=== PATIENT | male | born 1955 ===

== ENCOUNTER 2016-09-18 09:51 | Emergency (ER) | payer OTHER ==
[2016-09-18 09:52] VITALS: BMI 28.6
[2016-09-18] MEDS ORDERED: Sodium Chloride 0.9% 1,000 ML IV STA (10:07)
--- NOTE | 2016-09-18 10:24 | ED PDOC ---
Arrival/HPI - General Chief Complaint: Abdominal Pain Time Seen by Provider: 09/18/16 10:02 Historian: Patient - History of Present Illness Narrative History of Present Illness (Text): 09/18/16 10:22 61yo male with no PMH present with complaint of RLQ abdominal pain x 3days. States he was seen at [facility] this morning and was referred to ED. He denies nausea, vomiting, diarrhea, constipation, hematmesis, melena, any other complaint. Past Medical History - Provider Review Nursing Documentation Reviewed: Yes - Past History Past History: No Previous - Infectious Disease Hx of Infectious Diseases: None - Tetanus Immunization Tetanus Immunization: Unknown - Past Medical History Past Medical History: No Previous - Cardiac Hx Cardiac Disorders: No - Pulmonary Hx Respiratory Disorders: No - Neurological Hx Neurological Disorder: No - HEENT Hx HEENT Disorder: No - Renal Hx Renal Disorder: No - Endocrine/Metabolic Hx Endocrine Disorders: No - Hematological/Oncological Hx Blood Disorders: No - Integumentary Hx Dermatological Disorder: No - Musculoskeletal/Rheumatological Hx Musculoskeletal Disorders: Yes Hx Arthritis: Yes - Gastrointestinal Hx Gastrointestinal Disorders: No - Genitourinary/Gynecological Hx Genitourinary Disorders: No - Psychiatric Hx Psychophysiologic Disorder: No Hx Substance Use: No - Past Surgical History Past Surgical History: No Previous - Surgical History Hx Orthopedic Surgery: Yes (right shoulder) - Anesthesia Hx Anesthesia: Yes Hx Anesthesia Reactions: No Hx Malignant Hyperthermia: No - Suicidal Assessment Feels Threatened In Home Enviroment: No Family/Social History - Physician Review Nursing Documentation Reviewed: Yes Family/Social History: Unknown Family HX Smoking Status: Former Smoker Hx Alcohol Use: No Hx Substance Use: No Hx Substance Use Treatment: No Allergies/Home Meds Allergies/Adverse Reactions: Allergies No Known Allergies Allergy (Verified 09/18/16 09:52) Review of Systems - Physician Review All systems were reviewed & negative as marked: Yes - Review of Systems Constitutional: Normal Eyes: Normal ENT: Normal Respiratory: Normal Cardiovascular: Normal Gastrointestinal: Abdominal Pain. absent: Constipation, Diarrhea, Nausea, Vomiting, Hematochezia, Hematemesis Genitourinary Male: Normal Musculoskeletal: Normal Skin: Normal Neurological: Normal Endocrine: Normal Hemo/Lymphatic: Normal Psychiatric: Normal Physical Exam Vital Signs Reviewed: Yes Vital Signs Temp Pulse Resp BP Pulse Ox 09/18/16 14:00 98.2 F 78 20 118/71 99 09/18/16 12:01 121/71 97 09/18/16 11:21 98.6 F 85 20 126/77 96 09/18/16 09:55 97.6 F 78 18 117/73 99 Temperature: Afebrile Blood Pressure: Normal Pulse: Regular Respiratory Rate: Normal Appearance: Positive for: Well-Appearing, Non-Toxic, Comfortable Pain Distress: None Mental Status: Positive for: Alert and Oriented X 3 - Systems Exam Head: Present: Atraumatic, Normocephalic Pupils: Present: PERRL Extroacular Muscles: Present: EOMI Conjunctiva: Present: Normal Mouth: Present: Moist Mucous Membranes Neck: Present: Normal Range of Motion Respiratory/Chest: Present: Clear to Auscultation, Good Air Exchange. No: Respiratory Distress, Accessory Muscle Use Cardiovascular: Present: Regular Rate and Rhythm, Normal S1, S2. No: Murmurs Abdomen: Present: Tenderness (RLQ ), Normal Bowel Sounds, Other (Soft). No: Distention, Peritoneal Signs, Rebound, Guarding, McBurney's Point Tender, Rovsing's Sign Present Back: Present: Normal Inspection Upper Extremity: Present: Normal Inspection. No: Cyanosis, Edema Lower Extremity: Present: Normal Inspection. No: Edema Neurological: Present: GCS=15, CN II-XII Intact, Speech Normal Skin: Present: Warm, Dry, Normal Color. No: Rashes Psychiatric: Present: Alert, Oriented x 3, Normal Insight, Normal Concentration Medical Decision Making ED Course and Treatment: 09/18/16 18:39 PT presented for stated history. He was hemodynamically stable in ED. He denied flank pain, hematuria. Lab was unremarkable. Abdominal /Pelvis CT- Possible right renal mass. Renal US - No renal pass. Negative study. Result was DW the pt. He was referred to a GI for further outpt evaluation. Advised to return to ED at any time for worsening or new symptoms. - Lab Interpretations Lab Results: 09/18/16 10:39 09/18/16 10:39 Lab Results 09/18/16 11:06: Urine Color Yellow, Urine Appearance Clear, Urine pH 7.5, Ur Specific [place] 1.020, Urine Protein Negative, Urine Glucose (UA) Negative, Urine Ketones Negative, Urine Blood Negative, Urine Nitrate Negative, Urine Bilirubin Negative, Urine Urobilinogen 0.2, Ur Leukocyte Esterase Negative 09/18/16 10:39: Sodium 137, Potassium 4.2, Chloride 105, Carbon Dioxide 27, Anion Gap 9 L, BUN 16, Creatinine 0.8, Est GFR ( Amer) > 60, Est GFR (Non -Af Amer) > 60, Random Glucose 108, Calcium 8.8, Total Bilirubin 0.5, AST 26, ALT 38, Alkaline Phosphatase 71, Total Protein 6.5, Albumin 3.7, Globulin 2.8, Albumin/Globulin Ratio 1.3, Lipase 152 09/18/16 10:39: PT 10.7, INR 0.99, APTT 26.0 09/18/16 10:39: WBC 3.5 L, RBC 4.65, Hgb 13.7 L, Hct 40.0 L, MCV 86.0, MCH 29.5 , MCHC 34.3, RDW 12.5, Plt Count 220, MPV 9.0, Gran % 39.2 L, Lymph % (Auto) 40.9 H, [place] % (Auto) 8.6 H, Eos % (Auto) 10.7 H, Baso % (Auto) 0.6, Gran # 1.36 L, Lymph # 1.4, [place] # 0.3, Eos # 0.4, Baso # 0.02 - RAD Interpretation Radiology Orders: 09/18/16 10:08 ABD & PELVIS IV CONTRAST ONLY [CT] Stat 09/18/16 12:09 RENAL [US] Stat - Medication Orders Current Medication Orders: Discontinued Medications Famotidine (Pepcid) 20 mg IVP STAT STA Stop: 09/18/16 10:08 Last Admin: 09/18/16 10:37 Dose: 20 mg Sodium Chloride (Sodium Chloride 0.9%) 1,000 mls @ 1,000 mls/hr IV .Q1H STA Stop: 09/18/16 11:06 Last Admin: 09/18/16 10:37 Dose: 1,000 mls/hr Iohexol (Omnipaque 350 100 Ml) Confirm Administered Dose 350 mg .ROUTE .STK-MED ONE Stop: 09/18/16 11:13 Ketorolac Tromethamine (Toradol) 30 mg IVP STAT STA Stop: 09/18/16 12:51 Last Admin: 09/18/16 13:33 Dose: 30 mg Disposition/Present on Arrival - Present on Arrival Any Indicators Present on Arrival: No History of DVT/PE: No History of Uncontrolled Diabetes: No Urinary Catheter: No History of Decub. Ulcer: No History Surgical Site Infection Following: None - Disposition Have Diagnosis and Disposition been Completed?: Yes Diagnosis: Abdominal pain Disposition: HOME/ ROUTINE Disposition Time: 13:10 Patient Plan: Discharge Condition: STABLE Discharge Instructions (ExitCare): Abdominal Pain (ED) Additional Instructions: Follow up with your Doctor/Trust Clerk Return to ED for any new or worsening symptoms Prescriptions: Famotidine [Pepcid] 40 mg PO DAILY #15 tab traMADol [Ultram] 50 mg PO TID #9 tab Referrals: Eileen Collins MD [Primary Care Provider] - Follow up with primary Danish Gleason DO [Staff Provider] - Follow up with primary
[2016-09-18 10:39] LABS: ADD MANUAL DIFF? NO
[2016-09-18 10:49] LABS: BASO # 0.02 K/mm3 (0.0-2.0); BASO % 0.6 % (0.0-3.0); EOS # 0.4 (0.0-0.7); EOS % 10.7 % (1.5-5.0); GRAN # 1.36 (1.4-6.5); GRAN % 39.2 % (50.0-68.0); LYMPH # 1.4 (1.2-3.4); LYMPH % 40.9 % (22.0-35.0); MEAN CORPUSCULAR HEMOGLOBIN 29.5 pg (25.0-35.0); MEAN CORPUSCULAR HGB CONC 34.3 g/dl (31.0-37.0); MONO # 0.3 (0.1-0.6); MONO % 8.6 % (1.0-6.0); PLATELET COUNT 220 10^3/uL (120.0-450.0); RED CELL DISTRIBUTION WIDTH 12.5 % (11.5-14.5); WHITE BLOOD COUNT 3.5 10^3/ul (4.5-11.0)
[2016-09-18 10:52] LABS: ALB/GLOB RATIO 1.3 (1.1-1.8); ALKALINE PHOSPHATASE 71 U/L (38-133); ALT/SGPT 38 U/L (7-56); AST/SGOT 26 U/L (15-59); BILIRUBIN,TOTAL 0.5 mg/dL (0.2-1.3); BLOOD UREA NITROGEN 16 mg/dL (7-21); CALCIUM 8.8 mg/dL (8.4-10.5); CARBON DIOXIDE 27 mmol/L (21-33); CHLORIDE 105 mmol/L (98-107); GFR AFRICAN-AMERICAN > 60; GLUCOSE,RANDOM 108 mg/dL (70-110); LIPASE 152 U/L (23-300); POTASSIUM 4.2 mmol/L (3.6-5.0); SODIUM 137 mmol/L (132-148); TOTAL PROTEIN 6.5 g/dL (5.8-8.3)
[2016-09-18 10:53] LABS: INR 0.99 (0.93-1.08)
[2016-09-18] MEDS ORDERED: Iohexol 350 MG/100 ML VIAL ONE (11:12)
[2016-09-18 11:21] VITALS: RESP 20
[2016-09-18 11:26] LABS: PH,URINE 7.5 (4.7-8.0); URINE BILIRUBIN NEGATIVE (NEGATIVE); URINE BLOOD NEGATIVE (NEGATIVE); URINE GLUCOSE (UA) NEGATIVE (NEGATIVE); URINE KETONE NEGATIVE (NEGATIVE); URINE LEUKOCYTE ESTERASE NEGATIVE Leu/uL (NEGATIVE); URINE PROTEIN NEGATIVE mg/dL (<30 mg/dL); URINE UROBILINOGEN 0.2 E.U./dL (<1 E.U./dL)
[2016-09-18 11:28] LABS: URINE APPEARANCE CLEAR (CLEAR); URINE COLOR YELLOW (YELLOW)
--- NOTE | 2016-09-18 12:00 | CT ---
PROCEDURE: CT Abdomen and Pelvis with contrast HISTORY: RLQ abdominal pain COMPARISON: None. TECHNIQUE: Contrast dose: 150 mL Omnipaque 350 Radiation dose: Total exam DLP = 650.81 mGy-cm. This CT exam was performed using one or more of the following dose reduction techniques: Automated exposure control, adjustment of the mA and/or kV according to patient size, and/or use of iterative reconstruction technique. FINDINGS: LOWER THORAX: Unremarkable. LIVER: Diffusely diminished attenuation consistent with fatty infiltration. Normal size and contour. No mass or biliary dilatation. GALLBLADDER AND BILE DUCTS: Unremarkable. PANCREAS: Unremarkable. No gross lesion or ductal dilatation. SPLEEN: Unremarkable. ADRENALS: Unremarkable. No mass. KIDNEYS AND URETERS: 1.6 cm right lower pole renal cortical cyst. 2.4 cm left upper pole renal mass. This measures 84 Hounsfield units in attenuation. Suspicious for renal cell neoplasm. Evaluation with ultrasound is advised. No renal calculus or hydronephrosis. VASCULATURE: Unremarkable. No aortic aneurysm. BOWEL: Unremarkable. No obstruction. No gross mural thickening. APPENDIX: Normal appendix. PERITONEUM: Unremarkable. No free fluid. No free air. LYMPH NODES: Unremarkable. No enlarged lymph nodes. BLADDER: Unremarkable. REPRODUCTIVE: Normal prostate BONES: No acute fracture. OTHER FINDINGS: None. IMPRESSION: No evidence of acute appendicitis. 2.4 cm left upper pole renal mass suspicious for solid neoplasm. Recommend evaluation with renal ultrasound. 1.6 cm right lower pole renal cortical cyst. Otherwise unremarkable examination. .
--- NOTE | 2016-09-18 12:46 | US ---
PROCEDURE: Ultrasound of the Kidneys HISTORY: Right sided abdominal pain COMPARISON: None available. TECHNIQUE: Sonogram of the kidneys. FINDINGS: RIGHT KIDNEY: Measures: 10.4 cm. Normal in size, contour and echogenicity. No stone, solid mass lesion or hydronephrosis visualized. LEFT KIDNEY: Measures: 10.7 cm. Normal in size, contour and echogenicity. No stone, solid mass lesion or hydronephrosis visualized. OTHER FINDINGS: None. IMPRESSION: Unremarkable renal sonogram.
[2016-09-18 14:10] VITALS: BP 118/71; PULSE 78; TEMP 98.2; O2SAT 99
== END 2016-09-18 14:12 | disposition home or self-care (01) ==
LOC: ED 09:51
DX: R10.9 Unspecified abdominal pain (principal)
CPT/HCPCS: 74177; 76770; 80053; 81003; 83690; 85025; 85610; 85730; 96361; 96374; 96375; 99285; J1885; J7040; Q9967

== ENCOUNTER 2016-11-15 16:50 | Emergency (ER) | payer MEDICAID, OTHER ==
[2016-11-15 17:16] VITALS: BMI 24.9
[2016-11-15 18:05] VITALS: BP 125/79; RESP 16
[2016-11-15 18:15] LABS: BASO # 0.02 K/mm3 (0.0-2.0); BASO % 0.4 % (0.0-3.0); EOS # 0.6 (0.0-0.7); EOS % 12.2 % (1.5-5.0); GRAN # 1.99 (1.4-6.5); GRAN % 44.4 % (50.0-68.0); HEMOGLOBIN 13.8 gm/dL (14.0-18.0); LYMPH # 1.5 (1.2-3.4); LYMPH % 33.9 % (22.0-35.0); MEAN CELL VOLUME 85.2 fL (80.0-105.0); MEAN CORPUSCULAR HEMOGLOBIN 29.2 pg (25.0-35.0); MEAN CORPUSCULAR HGB CONC 34.2 g/dl (31.0-37.0); MONO # 0.4 (0.1-0.6); MONO % 9.1 % (1.0-6.0); PLATELET COUNT 239 10^3/uL (120.0-450.0); RBC 4.73 10^6/uL (3.5-6.1); RED CELL DISTRIBUTION WIDTH 12.3 % (11.5-14.5); WHITE BLOOD COUNT 4.5 10^3/ul (4.5-11.0)
[2016-11-15 18:22] LABS: ALB/GLOB RATIO 1.2 (1.1-1.8); ALBUMIN 4.1 g/dL (3.0-4.8); ALT/SGPT 35 U/L (7-56); AST/SGOT 36 U/L (15-59); BLOOD UREA NITROGEN 18 mg/dL (7-21); CALCIUM 8.9 mg/dL (8.4-10.5); GFR AFRICAN-AMERICAN > 60; GFR NON-AFRICAN AMERICAN > 60
[2016-11-15 18:38] LABS: INR 0.99 (0.93-1.08); PARTIAL THROMBOPLASTIN TIME 26.1 Seconds (23.7-30.8); PROTHROMBIN TIME 10.7 Seconds (9.9-11.8)
--- NOTE | 2016-11-15 19:02 | ED PDOC ---
Arrival/HPI - General Chief Complaint: Lower Extremity Problem/Injury Time Seen by Provider: 11/15/16 17:43 Historian: Patient - History of Present Illness Narrative History of Present Illness (Text): 11/15/16 19:03 A 61 year old male was referred to the emergency department for rule out of DVT. Patient complaining of right lower leg swelling for the past 4 weeks. Patient saw doctor a few days ago and was given antibiotics, with minimal relief. Patient has a history of cancer and is set to have kidney surgery in near future. Denies any chest pain, shortness of breath, fever, or any other complaints at this time. PMD: Dr. Griffin Time/Duration: Other (month) Symptom Onset: Sudden Symptom Course: Unchanged Activities at Onset: Rest Past Medical History - Provider Review Nursing Documentation Reviewed: Yes - Infectious Disease Hx of Infectious Diseases: None - Hematological/Oncological Hx Cancer: Yes (skin ca) - Psychiatric Hx Substance Use: No - Surgical History Other/Comment: R shoulder SX - Anesthesia Hx Anesthesia: Yes Hx Anesthesia Reactions: No Hx Malignant Hyperthermia: No Family/Social History - Physician Review Nursing Documentation Reviewed: Yes Family/Social History: No Known Family HX Smoking Status: Heavy Smoker > 10 Cigarettes Daily Hx Alcohol Use: No Hx Substance Use: No Allergies/Home Meds Allergies/Adverse Reactions: Allergies No Known Allergies Allergy (Verified 09/18/16 09:52) Home Medications: Home Meds Medication Instructions Recorded Confirmed No Known Home Med 02/03/15 11/15/16 Review of Systems - Physician Review All systems were reviewed & negative as marked: Yes - Review of Systems Constitutional: absent: Fevers Respiratory: absent: SOB Cardiovascular: absent: Chest Pain Musculoskeletal: Other (right lower leg swelling) Physical Exam Vital Signs Reviewed: Yes Vital Signs Temp Pulse Resp BP Pulse Ox 11/15/16 21:21 74 16 99 11/15/16 21:20 98.2 F 74 16 99 11/15/16 18:04 98.0 F 75 16 125/79 100 Temperature: Afebrile Blood Pressure: Normal Pulse: Regular Respiratory Rate: Normal Appearance: Positive for: Well-Appearing, Non-Toxic, Comfortable Pain Distress: None Mental Status: Positive for: Alert and Oriented X 3 - Systems Exam Head: Present: Atraumatic, Normocephalic Pupils: Present: PERRL Extroacular Muscles: Present: EOMI Conjunctiva: Present: Normal Mouth: Present: Moist Mucous Membranes Neck: Present: Normal Range of Motion Respiratory/Chest: Present: Clear to Auscultation, Good Air Exchange. No: Respiratory Distress, Accessory Muscle Use Cardiovascular: Present: Regular Rate and Rhythm, Normal S1, S2. No: Murmurs Abdomen: Present: Normal Bowel Sounds. No: Tenderness, Distention, Peritoneal Signs Back: Present: Normal Inspection Upper Extremity: Present: Normal Inspection. No: Cyanosis, Edema Lower Extremity: Present: NORMAL PULSES, Tenderness (R lower leg tender to touch calf region and warmth), Capillary Refill < 2 s Neurological: Present: GCS=15, CN II-XII Intact, Speech Normal Skin: Present: Warm, Dry, Normal Color. No: Rashes Psychiatric: Present: Alert, Oriented x 3, Normal Insight, Normal Concentration Medical Decision Making ED Course and Treatment: 11/15/16 19:01 Impression: A 61 year old male with right lower leg swelling. Differential Diagnosis included but are not limited to: r/o DVT Plan: -- US lower extremity -- labs -- Reassess and disposition Prior Visits: Notes and results from previous visits were reviewed. Patient last reported to the emergency department on 02/03/15 for evaluation of chronic dry rash over right medial aspect of foot. Progress Notes: - Lab Interpretations Lab Results: 11/15/16 18:03 11/15/16 18:03 Lab Results 11/15/16 18:03: Sodium 140, Potassium 4.3, Chloride 104, Carbon Dioxide 26, Anion Gap 14, BUN 18, Creatinine 0.7, Est GFR ( Amer) > 60, Est GFR (Non- Af Amer) > 60, Random Glucose 86, Calcium 8.9, Total Bilirubin 0.4, AST 36, ALT 35, Alkaline Phosphatase 94, Total Protein 7.5, Albumin 4.1, Globulin 3.3, Albumin/Globulin Ratio 1.2 11/15/16 18:03: PT 10.7, INR 0.99, APTT 26.1 11/15/16 18:03: WBC 4.5, RBC 4.73, Hgb 13.8 L, Hct 40.3 L, MCV 85.2, MCH 29.2, MCHC 34.2, RDW 12.3, Plt Count 239, MPV 9.0, Gran % 44.4 L, Lymph % (Auto) 33.9 , [place] % (Auto) 9.1 H, Eos % (Auto) 12.2 H, Baso % (Auto) 0.4, Gran # 1.99, Lymph # 1.5, [place] # 0.4, Eos # 0.6, Baso # 0.02 I have reviewed the lab results: Yes - RAD Interpretation Radiology Orders: 11/15/16 17:44 DUPLEX LOWER EXTRM VEIN RIGHT [US] Stat - Medication Orders Current Medication Orders: Discontinued Medications Ibuprofen (Motrin Tab) 600 mg PO STAT STA Stop: 11/15/16 21:13 Last Admin: 11/15/16 21:20 Dose: 600 mg - Scribe Statement The provider has reviewed the documentation as recorded by the Marc Bryant Provider Scribe Attestation: All medical record entries made by the Scribe were at my direction and personally dictated by me. I have reviewed the chart and agree that the record accurately reflects my personal performance of the history, physical exam, medical decision making, and the department course for this patient. I have also personally directed, reviewed, and agree with the discharge instructions and disposition. Disposition/Present on Arrival - Present on Arrival Any Indicators Present on Arrival: No History of DVT/PE: No History of Uncontrolled Diabetes: No Urinary Catheter: No History of Decub. Ulcer: No History Surgical Site Infection Following: None - Disposition Have Diagnosis and Disposition been Completed?: Yes Diagnosis: Leg pain, Cellulitis Disposition: HOME/ ROUTINE Disposition Time: 21:21 Condition: STABLE Discharge Instructions (ExitCare): Cellulitis (ED) Additional Instructions: Continue your Keflex antibiotics as prescribed by your doctor.Your Leg Ultrasound was negative for any DVT/advil as directed/follow up with your doctor this week Referrals: Jose Griffin, [employer] [Primary Care Provider] - Follow up with primary
--- NOTE | 2016-11-15 19:50 | ED PDOC ---
Physical Exam Vital Signs Reviewed: Yes Vital Signs Temp Pulse Resp BP Pulse Ox 11/15/16 18:04 98.0 F 75 16 125/79 100 Temperature: Afebrile Blood Pressure: Normal Pulse: Regular Respiratory Rate: Normal Appearance: Positive for: Well-Appearing, Non-Toxic, Comfortable Pain Distress: None Mental Status: Positive for: Alert and Oriented X 3 - Systems Exam Respiratory/Chest: Present: Clear to Auscultation, Good Air Exchange. No: Respiratory Distress, Accessory Muscle Use Cardiovascular: Present: Regular Rate and Rhythm, Normal S1, S2. No: Murmurs Lower Extremity: Present: NORMAL PULSES, Normal ROM, Neurovascularly Intact, Other (slight warmth right lower leg). No: CALF TENDERNESS, Dash's Sign, Tenderness, Swelling, Erythema Medical Decision Making ED Course and Treatment: 11/15/16 19:48 Case signed out to me by Dr. Lomeli. Patient has a history of right leg discomfort he describes as burning sensation presents to the emergency department to r/o DVT. Patient is on antibiotics at this time prescribed by his doctor. 11/15/16 21:11 US Duplex Lower Extremity negative for DVT. - Lab Interpretations Lab Results: 11/15/16 18:03 11/15/16 18:03 Lab Results 11/15/16 18:03: Sodium 140, Potassium 4.3, Chloride 104, Carbon Dioxide 26, Anion Gap 14, BUN 18, Creatinine 0.7, Est GFR ( Amer) > 60, Est GFR (Non- Af Amer) > 60, Random Glucose 86, Calcium 8.9, Total Bilirubin 0.4, AST 36, ALT 35, Alkaline Phosphatase 94, Total Protein 7.5, Albumin 4.1, Globulin 3.3, Albumin/Globulin Ratio 1.2 11/15/16 18:03: PT 10.7, INR 0.99, APTT 26.1 11/15/16 18:03: WBC 4.5, RBC 4.73, Hgb 13.8 L, Hct 40.3 L, MCV 85.2, MCH 29.2, MCHC 34.2, RDW 12.3, Plt Count 239, MPV 9.0, Gran % 44.4 L, Lymph % (Auto) 33.9 , [place] % (Auto) 9.1 H, Eos % (Auto) 12.2 H, Baso % (Auto) 0.4, Gran # 1.99, Lymph # 1.5, [place] # 0.4, Eos # 0.6, Baso # 0.02 I have reviewed the lab results: Yes - RAD Interpretation Radiology Orders: 11/15/16 17:44 DUPLEX LOWER EXTRM VEIN RIGHT [US] Stat - Scribe Statement The provider has reviewed the documentation as recorded by the Scribe Izabella Bryant Provider Scribe Attestation: All medical record entries made by the Scribe were at my direction and personally dictated by me. I have reviewed the chart and agree that the record accurately reflects my personal performance of the history, physical exam, medical decision making, and the department course for this patient. I have also personally directed, reviewed, and agree with the discharge instructions and disposition. Disposition/Present on Arrival - Present on Arrival Any Indicators Present on Arrival: No History of DVT/PE: No History of Uncontrolled Diabetes: No Urinary Catheter: No History of Decub. Ulcer: No History Surgical Site Infection Following: None - Disposition Have Diagnosis and Disposition been Completed?: Yes Diagnosis: Leg pain, Cellulitis Disposition: HOME/ ROUTINE Disposition Time: 21:09 Patient Plan: Discharge Condition: STABLE Discharge Instructions (ExitCare): Cellulitis (ED) Additional Instructions: Continue your Keflex antibiotics as prescribed by your doctor.Your Leg Ultrasound was negative for any DVT/advil as directed/follow up with your doctor this week Referrals: Jose Griffin APN [Primary Care Provider] - Follow up with primary
[2016-11-15 21:21] VITALS: PULSE 74; TEMP 98.2; O2SAT 99
--- NOTE | 2016-11-16 14:03 | US ---
PROCEDURE: Right lower extremity venous US HISTORY: Leg pain and swelling. Evaluate for DVT. PHYSICIAN(S): Andriy Redd M.D. TECHNIQUE: Duplex sonography and color-flow Doppler with graded compression were used to evaluate the deep venous system of the right lower extremity. FINDINGS: The visualized deep venous system of the right lower extremity is sonographically normal and compressible. Normal waveforms and augmentation are seen. There is no sonographic evidence for deep venous thrombosis in the visualized segments of the right lower extremity. IMPRESSION: 1. No sonographic evidence for deep venous thrombosis in the visualized segments of the right lower extremity.
== END 2016-11-15 21:21 | disposition home or self-care (01) ==
LOC: ED 16:50 → MERGE 16:50 → ED 21:21
DX: L03.115 Cellulitis of right lower limb (principal); M79.604 Pain in right leg

== ENCOUNTER 2017-02-10 11:18 | Emergency (ER) | payer MEDICAID, OTHER ==
[2017-02-10 11:18] VITALS: BMI 24.9
[2017-02-10 11:53] VITALS: RESP 16; TEMP 98; O2SAT 99
--- NOTE | 2017-02-10 12:14 | ED PDOC ---
Arrival/HPI - General Chief Complaint: Back Pain Time Seen by Provider: 02/10/17 11:34 Historian: Patient - History of Present Illness Narrative History of Present Illness (Text): 02/10/17 11:49 A 62 year old male, whose past medical history includes PVD and renal cancer, presents to the emergency department complaining of throbbing lower back pain and bilateral leg pain. Patient reports pain has been chronic for over a year. Also, patient mentions he has taken Tramadol but today pain has worsened and has had no relief. States leg pain is more worse on the right leg than left. Patient is capable of ambulating on his own and denies of any numbness/weakness , fever, erythema, or any other complaints. No incontinence or saddle anethesia. PMD: Dr. Griffin Symptom Onset: Gradual Symptom Course: Unchanged, Worsening Past Medical History - Provider Review Nursing Documentation Reviewed: Yes - Past History Past History: No Previous - Infectious Disease Hx of Infectious Diseases: None - Tetanus Immunization Tetanus Immunization: Unknown - Past Medical History Past Medical History: No Previous - Cardiac Hx Cardiac Disorders: No - Pulmonary Hx Respiratory Disorders: No - Neurological Hx Neurological Disorder: No - HEENT Hx HEENT Disorder: No - Renal Hx Renal Disorder: No - Endocrine/Metabolic Hx Endocrine Disorders: No - Hematological/Oncological Hx Blood Disorders: Yes Hx Cancer: Yes (skin ca) - Integumentary Hx Dermatological Disorder: No - Musculoskeletal/Rheumatological Hx Musculoskeletal Disorders: Yes Hx Arthritis: Yes - Gastrointestinal Hx Gastrointestinal Disorders: No - Genitourinary/Gynecological Hx Genitourinary Disorders: No - Psychiatric Hx Psychophysiologic Disorder: No Hx Substance Use: No - Past Surgical History Past Surgical History: No Previous - Surgical History Other/Comment: R shoulder SX - Anesthesia Hx Anesthesia: Yes Hx Anesthesia Reactions: No Hx Malignant Hyperthermia: No - Suicidal Assessment Feels Threatened In Home Enviroment: No Family/Social History - Physician Review Nursing Documentation Reviewed: Yes Family/Social History: No Known Family HX Smoking Status: Former Smoker Hx Alcohol Use: No Hx Substance Use: No Hx Substance Use Treatment: No Allergies/Home Meds Allergies/Adverse Reactions: Allergies No Known Allergies Allergy (Verified 09/18/16 09:52) Review of Systems - Physician Review All systems were reviewed & negative as marked: Yes - Review of Systems Constitutional: absent: Fevers Musculoskeletal: Back Pain (throbbing lower back pain), Other (bilateral lower leg pain, worse on the right than the left.) Skin: absent: Other (no erythema) Neurological: absent: Focal Weakness, Other (no numbness) Physical Exam Vital Signs Reviewed: Yes Vital Signs Temp Pulse Resp BP Pulse Ox 02/10/17 15:52 75 16 128/71 99 02/10/17 11:53 98 F 78 16 134/78 99 Temperature: Afebrile Blood Pressure: Normal Pulse: Regular Respiratory Rate: Normal Appearance: Positive for: Well-Appearing Pain Distress: None Mental Status: Positive for: Alert and Oriented X 3 - Systems Exam Head: Present: Atraumatic, Normocephalic Pupils: Present: PERRL Extroacular Muscles: Present: EOMI Conjunctiva: Present: Normal Mouth: Present: Moist Mucous Membranes Neck: Present: Normal Range of Motion Respiratory/Chest: Present: Clear to Auscultation, Good Air Exchange. No: Respiratory Distress, Accessory Muscle Use Cardiovascular: Present: Regular Rate and Rhythm, Normal S1, S2. No: Murmurs Abdomen: Present: Normal Bowel Sounds. No: Tenderness, Distention, Peritoneal Signs Back: Present: Normal Inspection Upper Extremity: Present: Normal Inspection. No: Cyanosis, Edema Lower Extremity: Present: NORMAL PULSES (distal and pedial pulses normal), Tenderness (tenderness to muscular thighs and medial sides of legs), Swelling ( right leg more swollen than the left leg) Neurological: Present: GCS=15, CN II-XII Intact, Speech Normal Skin: Present: Warm, Dry, Normal Color. No: Rashes Psychiatric: Present: Alert, Oriented x 3, Normal Insight, Normal Concentration Medical Decision Making ED Course and Treatment: 02/10/17 11:53 Impression: 62 year old male with lower back pain and bilateral leg pain (right worse than left). Physical exam shows right leg is more swollen than left leg; distal and pedial pulses normal; tenderness to muscular thighs and medial sides of legs. Differential Diagnosis included but are not limited to: Chronic muscular pain vs. Neuropathy pain Plan: -- Lower Extremity Ultrasound -- Neurontin -- Toradol -- Reassess and disposition Prior Visits: Notes and results from previous visits were reviewed. Patient was last seen here in the emergency department on 11/15/2016 after being referred for rule out of DVT. Patient was discharged home. Progress Notes: On reevaluation, patient feels much better. He requested flexeril which helped with his pain. He is ambulating with a steady gait. He will follow up with his primary care doctor. - RAD Interpretation Radiology Orders: 02/10/17 12:33 DUPLEX LOWER EXTRM VEIN BILAT [US] Stat US lower extremity negative for DVT as per tech. - Medication Orders Current Medication Orders: Discontinued Medications Cyclobenzaprine HCl (Flexeril) 10 mg PO STAT STA Stop: 02/10/17 14:56 Last Admin: 02/10/17 15:21 Dose: 10 mg Gabapentin (Neurontin) 300 mg PO STAT ONE PRN Reason: Protocol Stop: 02/10/17 12:16 Last Admin: 02/10/17 12:43 Dose: 300 mg Ketorolac Tromethamine (Toradol) 60 mg IM STAT STA Stop: 02/10/17 12:05 Last Admin: 02/10/17 12:42 Dose: 60 mg MAR Pain Assessment Document 02/10/17 12:42 EQ (Rec: 02/10/17 12:43 EQ [id number]) Pain Reassessment Is this a pain reassessment? No Sleep Is patient sleeping during reassessment? No Presence of Pain Presence of Pain Yes Description Description Intermittent IM Administration Charges Document 02/10/17 12:42 EQ (Rec: 02/10/17 12:43 EQ [id number]) Charges for Administration # of IM Administrations 1 - Scribe Statement The provider has reviewed the documentation as recorded by the Marc Crocker Provider Scribe Attestation: All medical record entries made by the Rosaibtrey were at my direction and personally dictated by me. I have reviewed the chart and agree that the record accurately reflects my personal performance of the history, physical exam, medical decision making, and the department course for this patient. I have also personally directed, reviewed, and agree with the discharge instructions and disposition. Disposition/Present on Arrival - Present on Arrival Any Indicators Present on Arrival: No History of DVT/PE: No History of Uncontrolled Diabetes: No Urinary Catheter: No History of Decub. Ulcer: No History Surgical Site Infection Following: None - Disposition Have Diagnosis and Disposition been Completed?: Yes Diagnosis: Leg pain Disposition: HOME/ ROUTINE Disposition Time: 15:45 Patient Plan: Discharge Condition: IMPROVED Discharge Instructions (ExitCare): Leg Pain (ED) Print Language: AZERBAIJANI Additional Instructions: Mr Sims, thank you for letting us take care of you today. Your provider was Dr. Oconnor. You were treated for back pain and leg pain. The emergency medical care you received today was directed at your acute symptoms. If you were prescribed any medication, please fill it and take as directed. It may take several days for your symptoms to resolve. Return to the Emergency Department if your symptoms worsen, do not improve, or if you have any other problems. Please contact your doctor or call one of the physicians/clinics you have been referred to that are listed on the Patient Visit Information form that is included in your discharge packet. Bring any paperwork you were given at discharge with you along with any medications you are taking to your follow up visit. Our treatment cannot replace ongoing medical care by a primary care provider (PCP) outside of the emergency department. Thank you for allowing the [facility] team to be part of your care today. If you had an X-Ray or CT scan: A Radiologist will review the ED reading if any change in treatment is needed we will contact you. If you had a blood, urine, or wound culture: It will take several days for the results, if any change in treatment is needed we will contact you. If you had an STI test: It will take 48 hours for the results. Please call after 1 week if you have not heard back. Prescriptions: Cyclobenzaprine [Cyclobenzaprine HCl] 10 mg PO Q8 #20 tab Referrals: Maria Ines Griffin DO [[facility]] - Follow up with primary Forms: [employer] ([place])
[2017-02-10 15:54] VITALS: BP 128/71; PULSE 75
--- NOTE | 2017-02-10 17:09 | US ---
HISTORY: Leg pain and swelling. Evaluate for DVT PHYSICIAN(S): Andriy Redd MD. TECHNIQUE: Duplex sonography and color-flow Doppler with graded compression were used to evaluate the deep venous systems of both lower extremities. FINDINGS: The visualized deep venous systems of both lower extremities are sonographically normal and compressible. Normal wave forms and augmentation are seen. There is no sonographic evidence for deep venous thrombosis in the visualized segments of both lower extremities. IMPRESSION: No sonographic evidence for deep venous thrombosis in the visualized segments of both lower extremities.
== END 2017-02-10 15:52 | disposition home or self-care (01) ==
LOC: ED 11:18
DX: M79.605 Pain in left leg (principal); M79.604 Pain in right leg
CPT/HCPCS: 93970; 96372; 99282; J1885

== ENCOUNTER 2017-03-15 08:20 | Day surgery (SDC) | payer MEDICARE ==
[2017-03-15 08:59] VITALS: BMI 24.1
[2017-03-15 09:17] LABS: BASO # 0.02 K/mm3 (0.0-2.0); BASO % 0.4 % (0.0-3.0); EOS # 0.4 (0.0-0.7); EOS % 7.7 % (1.5-5.0); GRAN # 2.21 (1.4-6.5); LYMPH # 1.8 (1.2-3.4); MEAN CELL VOLUME 85.1 fl (80.0-105.0); MEAN CORPUSCULAR HGB CONC 34.1 g/dl (31.0-37.0); MEAN PLATELET VOLUME 8.9 fl (7.0-11.0); MONO # 0.4 (0.1-0.6); MONO % 7.9 % (1.0-6.0); RED CELL DISTRIBUTION WIDTH 12.9 % (11.5-14.5); WHITE BLOOD COUNT 4.8 10^3/ul (4.5-11.0)
[2017-03-15 09:28] LABS: BLOOD UREA NITROGEN 18 mg/dL (7-21); CALCIUM 9.4 mg/dL (8.4-10.5); CARBON DIOXIDE 27 mmol/L (21-33); CHLORIDE 106 mmol/L (98-107); GFR AFRICAN-AMERICAN > 60; GLUCOSE,RANDOM 135 mg/dL (70-110); SODIUM 141 mmol/L (132-148)
[2017-03-15 09:42] LABS: INR 1.04 (0.93-1.08); PARTIAL THROMBOPLASTIN TIME 27.9 Seconds (25.1-36.5)
[2017-03-15] MEDS ORDERED: Midazolam 2 MG/2 ML VIAL ONE (11:31)
[2017-03-15] MEDS ORDERED: Oxycodone/Acetaminophen 5/325 mg Tab PO PRN (12:36)
[2017-03-15] MEDS ORDERED: Sodium Chloride 0.45% 1,000 ML IV SCH (12:45)
[2017-03-15 14:20] VITALS: RESP 18; TEMP 98
[2017-03-15 15:09] VITALS: BP 133/65; PULSE 100; O2SAT 97
--- NOTE | 2017-03-15 17:17 | CT ---
PROCEDURE: CT guided left renal biopsy. HISTORY: 3 cm left upper pole renal mass. Evaluate for malignancy. PHYSICIAN(S): Andriy Redd MD. TECHNIQUE: The relative risks and indications of the procedure were explained to the patient and consent obtained. The patient was placed prone on the CT scanner and preliminary images through the per kidneys obtained. Conscious sedation and monitoring were provided throughout the procedure by a nurse. There is a 3 cm solid mass involving the posterior aspect of the left upper kidney. A left posterior approach was selected and the area prepped and draped in the usual sterile fashion. 1% Xylocaine was used to anesthetize the skin and soft tissues. A 17-gauge guiding needle was advanced into the 3 cm left upper pole renal mass. Its position was confirmed with CT. Using coaxial technique, multiple core biopsies were obtained. The postprocedure images show no evidence of significant hemorrhage. IMPRESSION: 1. CT-guided left upper pole renal biopsy as described above.
== END 2017-03-15 15:40 | disposition home or self-care (01) ==
LOC: SDS 08:20
PROVIDERS: ATTEND Radiology Vascular & Interventional Radiology
DX: C64.2 Malignant neoplasm of left kidney, except renal pelvis (principal); I73.9 Peripheral vascular disease, unspecified; Z87.891 Personal history of nicotine dependence
CPT/HCPCS: 36415; 50200; 77012; 80048; 85025; 85610; 85730; 88305; J2250; J2405; J3010; J7030

== ENCOUNTER 2017-07-26 13:13 | Emergency (ER) | payer MEDICAID, MEDICARE ==
[2017-07-26 13:13] VITALS: BMI 25.0
[2017-07-26 13:47] VITALS: RESP 18; TEMP 98.4; O2SAT 98
--- NOTE | 2017-07-26 16:50 | RAD ---
PROCEDURE: Right Knee and patella Radiographs. HISTORY: knee pain COMPARISON: None. FINDINGS: BONES: Normal. No fracture. JOINTS: Normal. No osteoarthritis. JOINT EFFUSION: None. OTHER FINDINGS: None. IMPRESSION: No acute findings
--- NOTE | 2017-07-26 17:01 | ED PDOC ---
Arrival/HPI - General Chief Complaint: Lower Extremity Problem/Injury Time Seen by Provider: 07/26/17 14:42 Historian: Patient - History of Present Illness Narrative History of Present Illness (Text): 07/26/17 16:57 62-year-old male presents today with a two-week history of right knee pain. Patient denies any trauma or injury. Patient states the pain has been increasing over the past 2 weeks. He denies fevers or chills. Denies numbness weakness or tingling in the extremity. Patient states the pain is located on the anterior aspect of the knee. Patient states he hasn't taken any medications for pain at home. patient complaining of pain with range of motion of the knee. Patient denies calf tenderness. No other complaints Time/Duration: > week (2 weeks) Past Medical History - Provider Review Nursing Documentation Reviewed: Yes - Travel History Have you recently traveled outside [place] w/in the past 3 mons?: No - Past History Past History: No Previous - Infectious Disease Hx of Infectious Diseases: None - Tetanus Immunization Tetanus Immunization: Unknown - Past Medical History Past Medical History: No Previous - Cardiac Hx Hypertension: Yes Hx Peripheral Vascular Disease: Yes - Pulmonary Hx Respiratory Disorders: No - Neurological Hx Neurological Disorder: No - HEENT Hx HEENT Disorder: No - Renal Other/Comment: left renal mass - Endocrine/Metabolic Hx Endocrine Disorders: No - Hematological/Oncological Hx Blood Disorders: Yes Hx Cancer: Yes (skin ca) - Integumentary Hx Dermatological Disorder: No - Musculoskeletal/Rheumatological Hx Musculoskeletal Disorders: Yes Hx Falls: No Other/Comment: right shoulder sx - Gastrointestinal Hx Gastrointestinal Disorders: No - Genitourinary/Gynecological Hx Genitourinary Disorders: No - Psychiatric Hx Psychophysiologic Disorder: No Hx Substance Use: No - Past Surgical History Past Surgical History: No Previous - Surgical History Hx Angiogram: Yes (questionable) Hx Orthopedic Surgery: Yes (right shoulder) Other/Comment: renal bx. PATIENT STATES SURGERY VEINS BOTH LEGS FOR CIRCULATION. UNSURE ABOUT PROCEDURE - Anesthesia Hx Anesthesia: Yes Hx Anesthesia Reactions: No Hx Malignant Hyperthermia: No - Suicidal Assessment Feels Threatened In Home Enviroment: No Family/Social History - Physician Review Nursing Documentation Reviewed: Yes Family/Social History: Unknown Family HX Smoking Status: Former Smoker Hx Alcohol Use: No Hx Substance Use: No Hx Substance Use Treatment: No Allergies/Home Meds Allergies/Adverse Reactions: Allergies No Known Allergies Allergy (Verified 09/18/16 09:52) Home Medications: Home Meds Medication Instructions Recorded Confirmed Metoprolol Succinate [Toprol XL] 25 mg PO DAILY 05/23/17 05/25/17 Review of Systems - Review of Systems Constitutional: absent: Fatigue, Fevers Respiratory: absent: SOB, Cough Cardiovascular: absent: Chest Pain, Palpitations Gastrointestinal: absent: Abdominal Pain, Nausea, Vomiting Musculoskeletal: Arthralgias Skin: absent: Rash, Pruritis Neurological: absent: Headache, Dizziness Psychiatric: absent: Anxiety, Depression Physical Exam Vital Signs Reviewed: Yes Vital Signs Temp Pulse Resp BP Pulse Ox 07/26/17 15:48 79 18 158/79 H 98 07/26/17 13:46 98.4 F 83 18 164/84 H 98 Temperature: Afebrile Blood Pressure: Hypertensive Pulse: Regular Respiratory Rate: Normal Appearance: Positive for: Well-Appearing, Non-Toxic, Comfortable Pain Distress: None Mental Status: Positive for: Alert and Oriented X 3 - Systems Exam Head: Present: Atraumatic Mouth: Present: Moist Mucous Membranes Neck: Present: Normal Range of Motion Respiratory/Chest: Present: Clear to Auscultation, Good Air Exchange. No: Respiratory Distress, Accessory Muscle Use Cardiovascular: Present: Regular Rate and Rhythm, Normal S1, S2. No: Murmurs Upper Extremity: Present: Normal ROM Lower Extremity: Present: NORMAL PULSES, Tenderness (right knee; + ttp over anterior aspect of the knee; there is minimal swelling without large fluid collection. full rom of knee. no calf tenderness; sensation and distal pulses intact; ), Swelling, Neurovascularly Intact, Capillary Refill < 2 s. No: CALF TENDERNESS, Erythema Neurological: Present: GCS=15, Speech Normal Skin: Present: Warm, Dry, Normal Color. No: Rashes Psychiatric: Present: Alert, Oriented x 3 Medical Decision Making ED Course and Treatment: 07/26/17 17:26 Patient nontoxic well-appearing in no distress with stable vital signs X-rays of the right knee; no fracture + arthritis duplex right leg; no dvt verbal report from [facility]. toradol IM Patient placed in knee immobilizer. pt refused Crutches given for ambulation. pt states he has Cane. pt has cane in er. I discussed all results with patient advised to followup with the orthopedist for the next 2 days. Return if symptoms worsen persist or new symptoms develop i advised the patient that although the xrays show no fracture; there is still a possibility for ligamentous or tendon injury the patient must see the orthopedist for further evaluation. advised patient of arthritic changes in the knee. pt states he keeps telling his doctor but the doctor doesnt do anything. Patient verbalizes understanding of discharge instructions and need for immediate followup. all aspects of this case were discussed the attending of record. Impression: knee pain Motrin every 6 hours as needed for pain Rest, ice, compression, elevation Use cane for ambulation Followup with the orthopedist within the next 2 days Followup with primary care physician within the next 2 days Return if symptoms worsen persist or if new symptoms develop - RAD Interpretation Radiology Orders: 07/26/17 14:42 KNEE W PATELLA RIGHT 3 VIEW [RAD] Stat DUPLEX LOWER EXTRM VEIN RIGHT [US] Stat - Medication Orders Current Medication Orders: Discontinued Medications Ketorolac Tromethamine (Toradol) 30 mg IM STAT STA Stop: 07/26/17 16:45 Disposition/Present on Arrival - Present on Arrival Any Indicators Present on Arrival: No History of DVT/PE: No History of Uncontrolled Diabetes: No Urinary Catheter: No History of Decub. Ulcer: No History Surgical Site Infection Following: None - Disposition Have Diagnosis and Disposition been Completed?: Yes Diagnosis: Knee pain Disposition: HOME/ ROUTINE Disposition Time: 17:27 Patient Plan: Discharge Condition: GOOD Discharge Instructions (ExitCare): Knee Pain Additional Instructions: Motrin every 6 hours as needed for pain Rest, ice, compression, elevation Use crutches for ambulation Followup with the orthopedist within the next 2 days Followup with primary care physician within the next 2 days Return if symptoms worsen persist or if new symptoms develop Prescriptions: Ibuprofen [Motrin] 600 mg PO Q6H PRN #20 tab PRN Reason: pain/fever reduction Referrals: Jose Griffin APN [Primary Care Provider] - Follow up with primary Deepa Mckenna MD [Staff Provider] - Follow up with primary [facility] [Outside] - Follow up with primary Forms: [employer] ([place]), WORK NOTE
[2017-07-26 17:13] VITALS: BP 148/74; PULSE 75
== END 2017-07-26 17:39 | disposition home or self-care (01) ==
LOC: ED 13:13
DX: M25.561 Pain in right knee (principal)
CPT/HCPCS: 29530; 73562; 93971; 96372; 99284; J1885

== ENCOUNTER 2017-11-21 11:26 | Emergency (ER) | payer MEDICARE ==
[2017-11-21 11:45] VITALS: BMI 27.1
[2017-11-21 11:47] VITALS: BP 142/80; PULSE 74; RESP 18; TEMP 97.9; O2SAT 97
--- NOTE | 2017-11-21 11:59 | ED PDOC ---
Arrival/HPI - General Chief Complaint: Lower Extremity Problem/Injury Time Seen by Provider: 11/21/17 11:55 Historian: Patient - History of Present Illness Narrative History of Present Illness (Text): 11/21/17 11:55 62 y/o male, pmh including htn/bph/chronic lower back pain with sciatica, nkda, c/o bilateral thigh pain from exercising. Pt. stated that he has been having bilateral thigh pain for over several months now, admits exercising a lot, not much of lower back pain but more on the upper thigh region, feels stiffness, no rash, no night sweat, no dizziness, no change in vision, no calf pain, no numbness or tingling, no urinary or bowel incontinencen or retention, no other medical or psychological complaints. Past Medical History - Provider Review Nursing Documentation Reviewed: Yes - Past History Past History: No Previous - Infectious Disease Hx of Infectious Diseases: None - Tetanus Immunization Tetanus Immunization: Unknown - Past Medical History Past Medical History: No Previous - Cardiac Hx Hypertension: Yes Hx Peripheral Vascular Disease: Yes - Pulmonary Hx Respiratory Disorders: No - Neurological Hx Neurological Disorder: No - HEENT Hx HEENT Disorder: No - Renal Other/Comment: left renal mass - Endocrine/Metabolic Hx Endocrine Disorders: No - Hematological/Oncological Hx Blood Disorders: Yes Hx Cancer: Yes (skin ca) - Integumentary Hx Dermatological Disorder: No - Musculoskeletal/Rheumatological Hx Musculoskeletal Disorders: Yes Hx Falls: No Other/Comment: right shoulder sx. R knee pain - Gastrointestinal Hx Gastrointestinal Disorders: No - Genitourinary/Gynecological Hx Genitourinary Disorders: No - Psychiatric Hx Psychophysiologic Disorder: No Hx Substance Use: No - Past Surgical History Past Surgical History: No Previous - Surgical History Hx Angiogram: Yes (questionable) Hx Orthopedic Surgery: Yes (right shoulder) Other/Comment: renal bx. PATIENT STATES SURGERY VEINS BOTH LEGS FOR CIRCULATION. UNSURE ABOUT PROCEDURE - Anesthesia Hx Anesthesia: Yes Hx Anesthesia Reactions: No Hx Malignant Hyperthermia: No - Suicidal Assessment Feels Threatened In Home Enviroment: No Family/Social History - Physician Review Nursing Documentation Reviewed: Yes Family/Social History: Unknown Family HX Smoking Status: Former Smoker Hx Alcohol Use: No Hx Substance Use: No Hx Substance Use Treatment: No Allergies/Home Meds Allergies/Adverse Reactions: Allergies No Known Allergies Allergy (Verified 09/18/16 09:52) Home Medications: Home Meds Medication Instructions Recorded Confirmed Metoprolol Succinate XL [Toprol XL] 25 mg PO DAILY 05/23/17 11/21/17 Review of Systems - Review of Systems Constitutional: absent: Fatigue Eyes: absent: Vision Changes ENT: absent: Hearing Changes Respiratory: absent: SOB, Cough Cardiovascular: absent: Chest Pain Gastrointestinal: absent: Abdominal Pain, Nausea, Vomiting Musculoskeletal: Myalgias. absent: Arthralgias, Back Pain Skin: absent: Rash, Pruritis, Skin Lesions Neurological: absent: Headache, Dizziness Psychiatric: absent: Anxiety, Depression Physical Exam Vital Signs Reviewed: Yes Vital Signs Temp Pulse Resp BP Pulse Ox 11/21/17 11:46 97.9 F 74 18 142/80 97 Temperature: Afebrile Blood Pressure: Normal Pulse: Regular Respiratory Rate: Normal Appearance: Positive for: Well-Appearing, Non-Toxic, Comfortable Pain Distress: Moderate Mental Status: Positive for: Alert and Oriented X 3 - Systems Exam Head: Present: Atraumatic, Normocephalic Pupils: Present: PERRL Extroacular Muscles: Present: EOMI Conjunctiva: Present: Normal Mouth: Present: Moist Mucous Membranes Neck: Present: Normal Range of Motion Respiratory/Chest: Present: Clear to Auscultation, Good Air Exchange. No: Respiratory Distress, Accessory Muscle Use Cardiovascular: Present: Regular Rate and Rhythm, Normal S1, S2. No: Murmurs Abdomen: No: Tenderness, Distention, Peritoneal Signs Back: Present: Normal Inspection. No: CVA Tenderness, Midline Tenderness, Paraspinal Tenderness, Pain with Leg Raise, Decubitus Ulcer Upper Extremity: Present: Normal Inspection. No: Cyanosis, Edema Lower Extremity: Present: Normal Inspection, Other (Bilateral lower extremities : +ttp on the thigh thigh muscle region with spasm, no cellulitis or streaking, no ulcers, FROM without limitation, sensation intact, motor 5/5, ). No: Edema Neurological: Present: GCS=15, CN II-XII Intact, Speech Normal, Motor Func Grossly Intact, Gait Normal, Memory Normal Skin: Present: Warm, Dry, Normal Color. No: Rashes Psychiatric: Present: Alert, Oriented x 3, Normal Insight, Normal Concentration Medical Decision Making ED Course and Treatment: 11/21/17 12:05 Differential: Muscle spasm vs. DVT vs. Rhabdomylosis -Labs -Bilateral lower extremities venuous doppler -LS spine xray -Observe and reassess 11/21/17 13:26 -LS spine xray: Multilevel disc degeneration. -Bilateral lower extremities venuous doppler: as per preliminary report, no acute DVT -Labs are non-significant except CK 331 (drinking fluid), no signs of rhabdomylosis. -Pt. feels better after medication given in the ER, all labs/radiology results discussed with the patient. -Discharge home with motrin, flexeril, bed rest, avoid overly active exercise or activity, follow up with your own pmd and orthopedic within 2 days, return to the ER for any new or worsening signs or symptoms. - Lab Interpretations Lab Results: 11/21/17 12:15 11/21/17 12:15 Lab Results 11/21/17 12:15: Sodium 141, Potassium 4.8, Chloride 104, Carbon Dioxide 29, Anion Gap 13, BUN 19, Creatinine 1.0, Est GFR ( Amer) > 60, Est GFR (Non- Af Amer) > 60, Random Glucose 99, Calcium 9.3, Total Bilirubin 0.4, AST 45, ALT 51, Alkaline Phosphatase 88, Total Creatine Kinase 331 H, CK-MB (CK-2) 3.5, CK- MB (CK-2) % Cancelled, Total Protein 7.3, Albumin 4.1, Globulin 3.2, Albumin/ Globulin Ratio 1.3 11/21/17 12:15: WBC 4.4 L, RBC 4.91, Hgb 14.3, Hct 41.9 L, MCV 85.3, MCH 29.1, MCHC 34.1, RDW 12.8, Plt Count 254, MPV 9.0, Gran % 39.5 L, Lymph % (Auto) 43.2 H, [place] % (Auto) 10.6 H, Eos % (Auto) 6.5 H, Baso % (Auto) 0.2, Gran # 1.75, Lymph # (Auto) 1.9, [place] # (Auto) 0.5, Eos # (Auto) 0.3, Baso # (Auto) 0.01 I have reviewed the lab results: Yes - RAD Interpretation Radiology Orders: 11/21/17 12:00 LS SPINE WITH OBL > 18 YRS OLD [RAD] Stat DUPLEX LOWER EXTRM VEIN BILAT [US] Stat LS spine xray; Date of service: 11/21/2017 PROCEDURE: Radiographs of the Lumbar Spine. HISTORY: lower back pain COMPARISON: No prior. FINDINGS: BONES: Normal alignment. No listhesis. No fracture. DISC SPACES: Multilevel disc degeneration OTHER FINDINGS: None. IMPRESSION: Multilevel disc degeneration. Bilateral lower extremities venuous doppler: as per preliminary report, no acute DVT Pattern Grader Cutter: Radiologist - Medication Orders Current Medication Orders: Discontinued Medications Diazepam (Valium) 10 mg PO ONCE ONE PRN Reason: Protocol Stop: 11/21/17 12:03 Last Admin: 11/21/17 12:11 Dose: 10 mg - PA / SENIOR SOFTWARE QA ANALYST / Resident Statement / has reviewed & agrees with the documentation as recorded. Disposition/Present on Arrival - Present on Arrival Any Indicators Present on Arrival: No History of DVT/PE: No History of Uncontrolled Diabetes: No Urinary Catheter: No History of Decub. Ulcer: No History Surgical Site Infection Following: None - Disposition Have Diagnosis and Disposition been Completed?: Yes Diagnosis: Myalgia, Leg pain Disposition: HOME/ ROUTINE Disposition Time: 13:00 Patient Plan: Discharge Patient Problems: Current Active Problems Problem Status Onset Myalgia Acute Leg pain Acute Condition: IMPROVED Additional Instructions: -Discharge home with motrin, flexeril, bed rest, avoid overly active exercise or activity, follow up with your own pmd and orthopedic within 2 days, return to the ER for any new or worsening signs or symptoms. Prescriptions: Cyclobenzaprine [Cyclobenzaprine HCl] 10 mg PO BID #14 tab Ibuprofen [Motrin Tab] 600 mg PO TID PRN #18 tab PRN Reason: Other Referrals: Roddy Murguia DO [Staff Provider] - Follow up with primary Wenceslao Ayers MD [Staff Provider] - Follow up with primary Forms: WORK NOTE
[2017-11-21 12:26] LABS: BASO # 0.01 K/mm3 (0.0-2.0); BASO % 0.2 % (0.0-3.0); EOS # 0.3 (0.0-0.7); EOS % 6.5 % (1.5-5.0); GRAN # 1.75 (1.4-6.5); GRAN % 39.5 % (50.0-68.0); HEMOGLOBIN 14.3 g/dL (14.0-18.0); LYMPH # 1.9 (1.2-3.4); LYMPH % 43.2 % (22.0-35.0); MEAN CELL VOLUME 85.3 fl (80.0-105.0); MEAN CORPUSCULAR HEMOGLOBIN 29.1 pg (25.0-35.0); MEAN CORPUSCULAR HGB CONC 34.1 g/dl (31.0-37.0); MONO # 0.5 (0.1-0.6); MONO % 10.6 % (1.0-6.0); RBC 4.91 10^6/uL (3.5-6.1); RED CELL DISTRIBUTION WIDTH 12.8 % (11.5-14.5); WHITE BLOOD COUNT 4.4 10^3/ul (4.5-11.0)
[2017-11-21 12:32] LABS: ALB/GLOB RATIO 1.3 (1.1-1.8); ALBUMIN 4.1 g/dL (3.0-4.8); ALT/SGPT 51 U/L (7-56); AST/SGOT 45 U/L (17-59); BLOOD UREA NITROGEN 19 mg/dL (7-21); CALCIUM 9.3 mg/dL (8.4-10.5); GFR AFRICAN-AMERICAN > 60; GFR NON-AFRICAN AMERICAN > 60
--- NOTE | 2017-11-21 12:47 | RAD ---
Date of service: 11/21/2017 PROCEDURE: Radiographs of the Lumbar Spine. HISTORY: lower back pain COMPARISON: No prior. FINDINGS: BONES: Normal alignment. No listhesis. No fracture. DISC SPACES: Multilevel disc degeneration OTHER FINDINGS: None. IMPRESSION: Multilevel disc degeneration.
[2017-11-21 12:49] LABS: CK-MB 3.5 ng/mL (0.0-3.6)
== END 2017-11-21 13:47 | disposition home or self-care (01) ==
LOC: ED 11:26
DX: M79.1 Myalgia (principal); M79.652 Pain in left thigh; M79.651 Pain in right thigh; I10 Essential (primary) hypertension; Z87.891 Personal history of nicotine dependence

== ENCOUNTER 2017-12-21 11:54 | Emergency (ER) | payer MEDICARE ==
[2017-12-21 11:54] VITALS: BMI 27.1
[2017-12-21 12:35] VITALS: RESP 18
--- NOTE | 2017-12-21 13:54 | ED PDOC ---
Arrival/HPI - General Chief Complaint: Back Pain Time Seen by Provider: 12/21/17 12:35 Historian: Patient - History of Present Illness Narrative History of Present Illness (Text): 12/21/17 13:51 62yo male with pmhx of hypertension, knee OA and chronic back pain who present with complaint of right sided lower back "pressure' pain that radiates to his right leg. Notes that his back pain is intermittent and started few days ago. States he was taking Ibuprofen and flexeril, but he ran out. He states that his pain is worse with extended sitting and movement. He denies urinary/fecal incontinence, abdominal pain, focal weakness, saddle anesthesia, any other complaint. Past Medical History - Provider Review Nursing Documentation Reviewed: Yes - Past History Past History: No Previous - Infectious Disease Hx of Infectious Diseases: None - Tetanus Immunization Tetanus Immunization: Unknown - Past Medical History Past Medical History: No Previous - Cardiac Hx Cardiac Disorders: Yes Hx Hypertension: Yes Hx Peripheral Vascular Disease: Yes - Pulmonary Hx Respiratory Disorders: No - Neurological Hx Neurological Disorder: No - HEENT Hx HEENT Disorder: No - Renal Other/Comment: left renal mass - Endocrine/Metabolic Hx Endocrine Disorders: No - Hematological/Oncological Hx Blood Disorders: Yes Hx Cancer: Yes (skin ca) - Integumentary Hx Dermatological Disorder: No - Musculoskeletal/Rheumatological Hx Musculoskeletal Disorders: Yes Hx Back Pain: Yes Other/Comment: right shoulder sx. R knee pain - Gastrointestinal Hx Gastrointestinal Disorders: No - Genitourinary/Gynecological Hx Genitourinary Disorders: Yes Hx Prostate Problems: Yes - Psychiatric Hx Psychophysiologic Disorder: No Hx Substance Use: No - Past Surgical History Past Surgical History: No Previous - Surgical History Hx Orthopedic Surgery: Yes (right shoulder) - Anesthesia Hx Anesthesia: Yes Hx Anesthesia Reactions: No Hx Malignant Hyperthermia: No - Suicidal Assessment Feels Threatened In Home Enviroment: No Family/Social History - Physician Review Nursing Documentation Reviewed: Yes Family/Social History: Unknown Family HX Smoking Status: Former Smoker Hx Alcohol Use: No Hx Substance Use: No Hx Substance Use Treatment: No Allergies/Home Meds Allergies/Adverse Reactions: Allergies No Known Allergies Allergy (Verified 12/21/17 12:18) Home Medications: Home Meds Medication Instructions Recorded Confirmed Metoprolol Succinate XL [Toprol XL] 25 mg PO DAILY 05/23/17 12/21/17 Review of Systems - Physician Review All systems were reviewed & negative as marked: Yes - Review of Systems Constitutional: Normal Eyes: Normal ENT: Normal Respiratory: Normal Cardiovascular: Normal Gastrointestinal: Normal Genitourinary Male: Normal Musculoskeletal: Back Pain Skin: Normal Neurological: Normal Endocrine: Normal Hemo/Lymphatic: Normal Psychiatric: Normal Physical Exam Vital Signs Reviewed: Yes Vital Signs Temp Pulse Resp BP Pulse Ox 12/21/17 12:35 98.5 F 87 18 116/70 99 12/21/17 12:18 98.5 F 87 16 116/70 98 Temperature: Afebrile Blood Pressure: Normal Pulse: Regular Respiratory Rate: Normal Appearance: Positive for: Well-Appearing, Non-Toxic, Comfortable Pain Distress: None Mental Status: Positive for: Alert and Oriented X 3 - Systems Exam Head: Present: Atraumatic, Normocephalic Pupils: Present: PERRL Extroacular Muscles: Present: EOMI Conjunctiva: Present: Normal Mouth: Present: Moist Mucous Membranes Neck: Present: Normal Range of Motion Respiratory/Chest: Present: Clear to Auscultation, Good Air Exchange. No: Respiratory Distress, Accessory Muscle Use Cardiovascular: Present: Regular Rate and Rhythm, Normal S1, S2. No: Murmurs Abdomen: No: Tenderness, Distention, Peritoneal Signs Back: Present: Paraspinal Tenderness (Right sided paralumbar tenderness). No: Midline Tenderness, Pain with Leg Raise Upper Extremity: Present: Normal Inspection. No: Cyanosis, Edema Lower Extremity: Present: Normal Inspection. No: Edema Neurological: Present: GCS=15, CN II-XII Intact, Speech Normal Skin: Present: Warm, Dry, Normal Color. No: Rashes Psychiatric: Present: Alert, Oriented x 3, Normal Insight, Normal Concentration Medical Decision Making ED Course and Treatment: 12/21/17 14:51 PT presented for stated histoy. He was neurologically intact. He was ambulatory in ED. On re evaluation s/p medication he states his pain improved significantly. He was DC home with Naprosyn and flexeril Referred to his PMD/ortho TRT ED for any new or worsening symptoms - Medication Orders Current Medication Orders: Discontinued Medications Cyclobenzaprine HCl (Flexeril) 10 mg PO STAT STA Stop: 12/21/17 12:36 Last Admin: 12/21/17 12:55 Dose: 10 mg Ketorolac Tromethamine (Toradol) 60 mg IM STAT STA Stop: 12/21/17 12:36 Last Admin: 12/21/17 12:55 Dose: 60 mg MAR Pain Assessment Document 12/21/17 12:55 HI (Rec: 12/21/17 12:55 HI [place] [id number]) Pain Reassessment Is this a pain reassessment? No Sleep Is patient sleeping during reassessment? No Presence of Pain Presence of Pain Yes Location Pain Location Body Site Back IM Administration Charges Document 12/21/17 12:55 HI (Rec: 12/21/17 12:55 HI [place] [id number]) Injection Site MAR Injection Site Left Gluteus Neville Charges for Administration # of IM Administrations 1 Disposition/Present on Arrival - Present on Arrival Any Indicators Present on Arrival: No History of DVT/PE: No History of Uncontrolled Diabetes: No Urinary Catheter: No History of Decub. Ulcer: No History Surgical Site Infection Following: None - Disposition Have Diagnosis and Disposition been Completed?: Yes Diagnosis: Chronic back pain Disposition: HOME/ ROUTINE Disposition Time: 13:55 Patient Plan: Discharge Patient Problems: Current Active Problems Problem Status Onset Chronic back pain Acute Condition: STABLE Discharge Instructions (ExitCare): Chronic Pain (DC) Additional Instructions: Follow up with your Doctor/Orthopedist Return to ED for any new or worsening symptoms Take medication as directed Prescriptions: Cyclobenzaprine [Cyclobenzaprine HCl] 10 mg PO TID #14 tab Naproxen [Naprosyn] 500 mg PO BID #20 tablet Referrals: Deepa Mckenna MD [Staff Provider] - Follow up with primary Forms: [employer] (Welsh)
[2017-12-21 17:32] VITALS: BP 121/70; PULSE 72; TEMP 98.4; O2SAT 97
== END 2017-12-21 14:15 | disposition home or self-care (01) ==
LOC: ED 11:54
DX: G89.29 Other chronic pain (principal); M54.9 Dorsalgia, unspecified; I10 Essential (primary) hypertension; Z87.891 Personal history of nicotine dependence
CPT/HCPCS: 96372; 99283; J1885

== ENCOUNTER 2018-02-11 12:02 | Emergency (ER) | payer MEDICARE ==
--- NOTE | 2018-02-11 12:32 | ED PDOC ---
Arrival/HPI - General Chief Complaint: Back Pain Time Seen by Provider: 02/11/18 12:14 - History of Present Illness Narrative History of Present Illness (Text): 63 yr old M w/ hx of chronic leg pain and back pain p/w back and leg pain. Pain noted to be flaring from time to time. Has had pain for 9+ months. States pain is exactly like previous pain when he was here roughly 2 and 3 months ago. He notes that he has been to physical therapy, orthopedics and his primary care doctor (Elias) for the pain has had repeated negative imaging and labs for the pain. He denies any falls or trauma. He denies any difficulty feeling in his legs or loss of bladder or bowel function. He notes that todays pain is likely because he ran out of pain medications weeks ago and has only been taking tylenol when has previously took flexiril and naproxen for the pain. No urinary complaints: No dark or bloody stool or constipation. No abdominal pain or chest pain or sob. No GI or Complaints. No rashes. PMD: Dr. Griffin Past Medical History - Past History Past History: No Previous - Infectious Disease Hx of Infectious Diseases: None - Tetanus Immunization Tetanus Immunization: Unknown - Past Medical History Past Medical History: No Previous - Cardiac Hx Cardiac Disorders: Yes Hx Hypertension: Yes Hx Peripheral Vascular Disease: Yes - Pulmonary Hx Respiratory Disorders: No - Neurological Hx Neurological Disorder: No - HEENT Hx HEENT Disorder: No - Renal Other/Comment: left renal mass - Endocrine/Metabolic Hx Endocrine Disorders: No - Hematological/Oncological Hx Blood Disorders: Yes Hx Cancer: Yes (skin ca) - Integumentary Hx Dermatological Disorder: No - Musculoskeletal/Rheumatological Hx Musculoskeletal Disorders: Yes Hx Back Pain: Yes Other/Comment: right shoulder sx. R knee pain - Gastrointestinal Hx Gastrointestinal Disorders: No - Genitourinary/Gynecological Hx Genitourinary Disorders: Yes Hx Prostate Problems: Yes - Psychiatric Hx Psychophysiologic Disorder: No Hx Substance Use: No - Past Surgical History Past Surgical History: No Previous - Surgical History Hx Orthopedic Surgery: Yes (right shoulder) - Anesthesia Hx Anesthesia: Yes Hx Anesthesia Reactions: No Hx Malignant Hyperthermia: No - Suicidal Assessment Feels Threatened In Home Enviroment: No Family/Social History Family/Social History: Unknown Family HX Smoking Status: Former Smoker Hx Alcohol Use: No Hx Substance Use: No Hx Substance Use Treatment: No Allergies/Home Meds Allergies/Adverse Reactions: Allergies No Known Allergies Allergy (Verified 12/21/17 12:18) Home Medications: Home Meds Medication Instructions Recorded Confirmed Metoprolol Succinate XL [Toprol XL] 25 mg PO DAILY 05/23/17 12/21/17 Review of Systems - Review of Systems Constitutional: Normal. absent: Fatigue, Weight Change Eyes: absent: Vision Changes ENT: absent: Hearing Changes Respiratory: absent: SOB, Cough Cardiovascular: absent: Chest Pain, Palpitations Gastrointestinal: absent: Abdominal Pain, Stool Changes, Constipation Genitourinary Male: absent: Dysuria, Frequency Musculoskeletal: Back Pain. absent: Arthralgias Skin: absent: Rash, Pruritis, Skin Lesions Neurological: absent: Headache, Dizziness, Focal Weakness, Gait Changes Endocrine: absent: Diaphoresis, Polyuria Hemo/Lymphatic: absent: Adenopathy, Easy Bleeding Psychiatric: absent: Anxiety, Depression Physical Exam Temperature: Afebrile Blood Pressure: Normal Pulse: Regular Respiratory Rate: Normal Appearance: Positive for: Well-Appearing Pain Distress: None Mental Status: Positive for: Alert and Oriented X 3 - Systems Exam Head: Present: Atraumatic, Normocephalic Pupils: Present: PERRL Extroacular Muscles: Present: EOMI Conjunctiva: Present: Normal Ears: Present: Normal Mouth: Present: Moist Mucous Membranes Pharnyx: Present: Normal, ERYTHEMA Nose (Internal): Present: Normal Inspection Neck: Present: Normal Range of Motion. No: Meningeal Signs, MIDLINE TENDERNESS Respiratory/Chest: Present: Clear to Auscultation, Good Air Exchange Cardiovascular: Present: Regular Rate and Rhythm, Murmurs. No: Normal S1, S2 Abdomen: No: Tenderness, Distention, Normal Bowel Sounds, Peritoneal Signs Back: Present: Paraspinal Tenderness, Pain with Leg Raise. No: Normal Inspection, CVA Tenderness, Midline Tenderness, Decubitus Ulcer Upper Extremity: Present: Normal Inspection. No: Cyanosis, Edema, Normal ROM, NORMAL PULSES Lower Extremity: Present: Normal Inspection, NORMAL PULSES. No: Edema, CALF TENDERNESS Neurological: Present: GCS=15, CN II-XII Intact, Speech Normal, Motor Func Grossly Intact, Normal Sensory Function, Normal Cerebellar Funct, Gait Normal Skin: Present: Warm, Dry Lymphatic: No: Axillary Adenopathy Psychiatric: Present: Alert, Oriented x 3, Normal Insight Medical Decision Making ED Course and Treatment: 02/11/18 12:32 63 yr old male w/ hx of chronic back and leg pain p/w b/l LE pain and back pain. Pt notes pain feels exactly like previous back pain for which he was seen here 2 months and 1 month prior. He notes he has seen Dr. Griffin for the same pain. He denies any hx of IVDU. He denies any hx of Afib or abnl heart rythmn. He denies any pinpoint back pain, fever, chills or night sweats or diabetes. He denies any falls or trauma. Given walking well with cane, pts baseline, as well as no urinary complaints or trauma as well as no signs of cauda equina (No enuresis / encoparesis / saddle anesthesia) no indication of cauda equina. No recent Viral URI. Unlikley transverse myelitis symptoms given no enuresis / encoparesis or autonomic / sensory disturbances. Likely chronic pain and given ran out of pain meds. No upgoing paralysis, recent viral illness. Pending pain meds and reassessment. 02/11/18 14:00 stable neuro exam, remains w/ out signs of cauda equina. Ambulating well. Pain improved, clear for d/c home with scripts and f/u home. Disposition/Present on Arrival - Present on Arrival Any Indicators Present on Arrival: No History of DVT/PE: No History of Uncontrolled Diabetes: No Urinary Catheter: No History Surgical Site Infection Following: None - Disposition Have Diagnosis and Disposition been Completed?: Yes Diagnosis: Chronic back pain Disposition: HOME/ ROUTINE Disposition Time: 14:00 Condition: GOOD Discharge Instructions (ExitCare): Chronic Pain (DC), Low Back Pain (DC) Prescriptions: Cyclobenzaprine [Flexeril] 10 mg PO Q12H PRN 4 Days #8 tab PRN Reason: Pain, Moderate (4-7) Naproxen 500 mg PO BID PRN 5 Days #10 tab PRN Reason: Pain, Moderate (4-7) Referrals: Jose Griffin APN [Primary Care Provider] - Follow up with primary Xiomara Dela Cruz MD [Medical Doctor] - Follow up with primary Diego Alex MD [Staff Provider] - Follow up with primary Forms: [email or web address] (Paraguayan)
[2018-02-11 13:00] VITALS: BMI 24.4
[2018-02-11 13:05] VITALS: RESP 18; O2SAT 99
[2018-02-11] MEDS ORDERED: Naproxen 550 mg Tab PO ONE (13:12)
[2018-02-11 15:10] VITALS: BP 110/75; PULSE 87; TEMP 98
[2018-02-11] MEDS ORDERED: Naproxen 550 mg Tab PO SCH (18:00)
== END 2018-02-11 15:10 | disposition home or self-care (01) ==
LOC: ED 12:02
DX: M54.9 Dorsalgia, unspecified (principal); G89.29 Other chronic pain

== ENCOUNTER 2018-03-22 07:19 | Day surgery (SDC) | payer MEDICARE ==
[2018-03-22] MEDS ORDERED: Propofol 10 mg/ml Inj (20 ML) ONE (09:50)
[2018-03-22] MEDS ORDERED: Sodium Chloride 0.9% 1,000 ML IV SCH (10:30)
[2018-03-22 11:30] VITALS: BP 125/71; PULSE 67; RESP 18; TEMP 97.7; O2SAT 100
== END 2018-03-22 11:53 | disposition home or self-care (01) ==
LOC: ENDO 07:19
PROVIDERS: ATTEND Specialist
DX: Z12.11 Encounter for screening for malignant neoplasm of colon (principal); D12.3 Benign neoplasm of transverse colon; K64.8 Other hemorrhoids; Z85.828 Personal history of other malignant neoplasm of skin

== ENCOUNTER 2018-05-17 19:14 | Emergency (ER) | payer MEDICARE ==
[2018-05-17 20:05] VITALS: BMI 25.0
[2018-05-17] MEDS ORDERED: Lidocaine 5% Patch TD STA (20:39)
[2018-05-17 21:45] VITALS: BP 130/80; PULSE 94; RESP 18; TEMP 98.1; O2SAT 98
--- NOTE | 2018-05-17 22:31 | ED PDOC ---
Arrival/HPI - General Chief Complaint: Lower Extremity Problem/Injury Time Seen by Provider: 05/17/18 20:09 Historian: Patient - History of Present Illness Narrative History of Present Illness (Text): 05/17/18 22:27 63-year-old male complains of chronic bilateral knee pain, worse in the left than the right. Patient states that he has been evaluated by an orthopedic doctor regarding the chronic knee pain, he states that he has received injections to the left knee 3 times in the past and is gone for physical therapy in the past with no improvement of the pain. Patient states that he takes gabapentin and baclofen for his pain without improvement prompting ER visit. He adds that he was seeing orthopedist Dr. Chavez, he states that tomorrow he is scheduled to see another orthopedist Dr. Stroud for a second opinion, as he was told by his orthopedist that he will need L knee replacement. Otherwsie denies any trauma, injury, numbness, other joint pain, other complaints. Past Medical History - Past History Past History: No Previous - Infectious Disease Hx of Infectious Diseases: None - Tetanus Immunization Tetanus Immunization: Unknown - Past Medical History Past Medical History: No Previous - Cardiac Hx Pacemaker: No - Pulmonary Hx Respiratory Disorders: No - Neurological Hx Neurological Disorder: No - HEENT Hx HEENT Disorder: No - Renal Other/Comment: left renal mass - Endocrine/Metabolic Hx Endocrine Disorders: No - Hematological/Oncological Hx Blood Transfusions: No Hx Blood Transfusion Reaction: No - Integumentary Hx Dermatological Disorder: No Other/Comment: skin ca - Musculoskeletal/Rheumatological Hx Musculoskeletal Disorders: Yes (BACK PAIN IN HX) - Gastrointestinal Hx Gastrointestinal Disorders: No - Genitourinary/Gynecological Hx Genitourinary Disorders: Yes Hx Prostate Problems: Yes - Psychiatric Hx Emotional Abuse: No Hx Physical Abuse: No Hx Substance Use: No - Past Surgical History Past Surgical History: No Previous - Surgical History Hx Orthopedic Surgery: Yes (right shoulder) - Anesthesia Hx Anesthesia: Yes Hx Anesthesia Reactions: No Hx Malignant Hyperthermia: No - Suicidal Assessment Feels Threatened In Home Enviroment: No Family/Social History Family/Social History: No Known Family HX Smoking Status: Former Smoker Hx Alcohol Use: Yes (former) Hx Substance Use: No Hx Substance Use Treatment: No Allergies/Home Meds Allergies/Adverse Reactions: Allergies No Known Allergies Allergy (Verified 05/17/18 20:05) Home Medications: Home Meds Medication Instructions Recorded Confirmed Baclofen [Lioresal] 10 mg PO TID 03/22/18 03/22/18 Gabapentin 1 tab PO TID 03/22/18 03/22/18 Review of Systems - Review of Systems Constitutional: absent: Fatigue, Fevers Musculoskeletal: Arthralgias. absent: Back Pain, Neck Pain, Joint Swelling Skin: absent: Rash, Pruritis, Skin Lesions Neurological: absent: Headache, Dizziness Physical Exam - Physical Exam Narrative Physical Exam (Text): 05/17/18 22:30 GENERAL APPEARANCE: Patient is awake, alert, oriented x 3, in mild painful distress. SKIN: Warm, dry; (-) cyanosis. LOWER EXTREMITY: Mild tenderness of the b/l knees, L>R, both with mild joint effusion. Able to extend actively to 0 degrees; (-) instability on valgus or varus stress. Drawer sign (-). (-) distal neurovascular deficit. 2 point discrimination. Hip, thigh, leg and ankle: (-) tenderness or limitation of motion. Vital Signs Temp Pulse Resp BP Pulse Ox 05/17/18 20:44 98.1 F 94 H 18 130/80 98 Medical Decision Making ED Course and Treatment: 05/17/18 22:31 Patient given toradol IM and lidoderm patch. On re-evaluation, patient still complaining of pain, is given tramadol PO. Advised to follow up with Dr. Stroud tomorrow without fail. Return to the emergency room at any time for any new or worsening symptoms. Patient states he fully agrees with and understands discharge instructions. States that he agrees with the plan and disposition. Verbalized and repeated discharge instructions and plan. I have given the patient opportunity to ask any additional questions. - Medication Orders Current Medication Orders: Discontinued Medications Ketorolac Tromethamine (Toradol) 60 mg IM STAT STA Stop: 05/17/18 20:40 Last Admin: 05/17/18 21:03 Dose: 60 mg MAR Pain Assessment Document 05/17/18 21:03 SS (Rec: 05/17/18 21:03 SS [email or web address]) Pain Reassessment Is this a pain reassessment? Yes Sleep Is patient sleeping during reassessment? No IM Administration Charges Document 05/17/18 21:03 SS (Rec: 05/17/18 21:03 SS [email or web address]) Charges for Administration # of IM Administrations 1 Lidocaine (Lidoderm) 1 ea TD STAT STA Stop: 05/17/18 20:40 Last Admin: 05/17/18 21:02 Dose: 1 ea MAR Transdermal Patch Site Document 05/17/18 21:02 SS (Rec: 05/17/18 21:03 SS [email or web address]) Transdermal Patch Site Transdermal Patch Site Right Thigh Tramadol HCl (Ultram) 50 mg PO STAT STA Stop: 05/17/18 22:04 Last Admin: 05/17/18 22:20 Dose: 50 mg MAR Pain Assessment Document 05/17/18 22:20 SS (Rec: 05/17/18 22:20 SS [email or web address]) Pain Reassessment Is this a pain reassessment? Yes Sleep Is patient sleeping during reassessment? No Presence of Pain Presence of Pain Yes Location Left, Right or Bilateral Bilateral Pain Location Body Site Leg - PA / INSTRUMENT/CONTROL TECHNICIAN / Resident Statement MD/DO has reviewed & agrees with the documentation as recorded. Disposition/Present on Arrival - Present on Arrival Any Indicators Present on Arrival: No History of DVT/PE: No History of Uncontrolled Diabetes: No Urinary Catheter: No History of Decub. Ulcer: No History Surgical Site Infection Following: None - Disposition Have Diagnosis and Disposition been Completed?: Yes Diagnosis: Chronic knee pain Disposition: HOME/ ROUTINE Disposition Time: 22:30 Patient Plan: Discharge Patient Problems: Current Active Problems Problem Status Onset Chronic knee pain Acute Condition: STABLE Discharge Instructions (ExitCare): Chronic Pain (DC), Knee Pain Additional Instructions: Thank you for letting us take care of you today. You were treated for chronic b/l knee pain. The emergency medical care you received today was directed at your acute symptoms. Return to the Emergency Department if your symptoms worsen, do not improve, or if you have any other problems. Please see Dr. Stroud tomorrow for re-evaluation and follow up. Bring any paperwork you were given at discharge with you along with any medications you are taking to your follow up visit. Our treatment cannot replace ongoing medical care by a primary care provider (PCP) outside of the emergency department. Thank you for allowing the [facility] team to be part of your care today. Forms: [employer] (Kazakh)
== END 2018-05-18 01:09 | disposition home or self-care (01) ==
LOC: ED 19:14
DX: G89.29 Other chronic pain (principal); M25.562 Pain in left knee; M25.561 Pain in right knee; Z87.891 Personal history of nicotine dependence
CPT/HCPCS: 96372; 99283; J1885

== ENCOUNTER 2018-05-29 14:00 | Outpatient (CLI) | payer MEDICARE | END 2018-05-29 14:01 | disposition home or self-care (01) | LOC: RAD 14:00 ==

== ENCOUNTER 2018-06-04 21:14 | Emergency (ER) | payer MEDICARE ==
[2018-06-04 21:14] VITALS: BMI 25.0
[2018-06-04 21:38] VITALS: TEMP 98.2
[2018-06-04] MEDS ORDERED: Sodium Chloride 0.9% 1,000 ML IV STA (21:42)
[2018-06-04] MEDS ORDERED: Morphine 4 mg/ml ISec IVP STA (21:42)
--- NOTE | 2018-06-04 22:05 | ED PDOC ---
Arrival/HPI - General Chief Complaint: Abdominal Pain Time Seen by Provider: 06/04/18 21:33 Historian: Patient - History of Present Illness Narrative History of Present Illness (Text): 06/04/18 21:40 Tanmay Sims is a 63 year old male, whose past medical history includes renal cell carcinoma s/p partial open nephrectomy, who presents to the Emergency department complaining of abdominal pain. Patient states he has been experienci ng diffuse abdominal pain with associated nausea today after eating fast food. Patient denies any fever, chills, chest pain, shortness of breath, vomiting, diarrhea, back pain, neck pain, headache, dizziness, or any other complaints. Symptom Onset: Gradual Symptom Course: Unchanged Activities at Onset: Light Context: Home Past Medical History - Provider Review Nursing Documentation Reviewed: Yes - Past History Past History: No Previous - Infectious Disease Hx of Infectious Diseases: None - Tetanus Immunization Tetanus Immunization: Unknown - Past Medical History Past Medical History: No Previous - Cardiac Hx Pacemaker: No - Pulmonary Hx Respiratory Disorders: No - Neurological Hx Neurological Disorder: No - HEENT Hx HEENT Disorder: No - Renal Other/Comment: left renal mass - Endocrine/Metabolic Hx Endocrine Disorders: No - Hematological/Oncological Hx Blood Transfusions: No Hx Blood Transfusion Reaction: No - Integumentary Hx Dermatological Disorder: No Other/Comment: skin ca - Musculoskeletal/Rheumatological Hx Musculoskeletal Disorders: Yes (BACK PAIN IN HX) - Gastrointestinal Hx Gastrointestinal Disorders: No - Genitourinary/Gynecological Hx Genitourinary Disorders: Yes Hx Prostate Problems: Yes - Psychiatric Hx Emotional Abuse: No Hx Physical Abuse: No Hx Substance Use: No - Past Surgical History Past Surgical History: No Previous - Surgical History Hx Orthopedic Surgery: Yes (right shoulder) - Anesthesia Hx Anesthesia: Yes Hx Anesthesia Reactions: No Hx Malignant Hyperthermia: No - Suicidal Assessment Feels Threatened In Home Enviroment: No Family/Social History - Physician Review Nursing Documentation Reviewed: Yes Family/Social History: Unknown Family HX Smoking Status: Former Smoker Hx Alcohol Use: Yes (former) Hx Substance Use: No Hx Substance Use Treatment: No Allergies/Home Meds Allergies/Adverse Reactions: Allergies No Known Allergies Allergy (Verified 06/04/18 21:32) Home Medications: Home Meds Medication Instructions Recorded Confirmed Gabapentin 1 tab PO TID 03/22/18 03/22/18 RX: Baclofen [Lioresal] 10 mg PO TID 03/22/18 03/22/18 Review of Systems - Physician Review All systems were reviewed & negative as marked: Yes - Review of Systems Constitutional: Normal. absent: Fevers Eyes: Normal ENT: Normal Respiratory: Normal. absent: SOB, Cough Cardiovascular: Normal. absent: Chest Pain Gastrointestinal: Abdominal Pain, Nausea. absent: Diarrhea, Vomiting Genitourinary Male: Normal. absent: Dysuria, Frequency, Hematuria, Urinary Output Changes Musculoskeletal: Normal. absent: Back Pain, Neck Pain Skin: Normal. absent: Rash Neurological: Normal. absent: Headache, Dizziness Endocrine: Normal Hemo/Lymphatic: Normal Psychiatric: Normal Physical Exam Vital Signs Reviewed: Yes Vital Signs Temp Pulse Resp BP Pulse Ox 06/04/18 21:35 98.2 F 92 H 16 129/75 99 Temperature: Afebrile Blood Pressure: Normal Pulse: Regular Respiratory Rate: Normal Appearance: Positive for: Well-Appearing, Non-Toxic, Comfortable Pain Distress: None Mental Status: Positive for: Alert and Oriented X 3 - Systems Exam Head: Present: Atraumatic, Normocephalic Pupils: Present: PERRL Extroacular Muscles: Present: EOMI Conjunctiva: Present: Normal Mouth: Present: Moist Mucous Membranes Neck: Present: Normal Range of Motion Respiratory/Chest: Present: Decreased Breath Sounds. No: Respiratory Distress, Accessory Muscle Use Cardiovascular: Present: Regular Rate and Rhythm, Normal S1, S2. No: Murmurs Abdomen: Present: Tenderness (Diffuse abdominal tenderness). No: Distention, Peritoneal Signs Back: Present: Normal Inspection Upper Extremity: Present: Normal Inspection. No: Cyanosis, Edema Lower Extremity: Present: Normal Inspection. No: Edema Neurological: Present: GCS=15, CN II-XII Intact, Speech Normal Skin: Present: Warm, Dry, Normal Color. No: Rashes Psychiatric: Present: Alert, Oriented x 3, Normal Insight, Normal Concentration Medical Decision Making ED Course and Treatment: 06/04/18 21:40 Impression: 63 year old male complaining of diffuse abdominal pain and nausea. Plan: -- EKG -- Labs, amylase, lipase, cardiac enzymes -- Urinalysis -- IV fluids -- Zofran -- Morphine -- Reassess and disposition Prior Visits: Notes and results from previous visits were reviewed. Progress Notes: Reviewed EKG, NSR at [address]-segment elevations or depressions, no T-wave inversions, normal intervals. 06/05/18 00:29 CT Head: Uncomplicated diverticulosis with moderate amount of fecal residue in the colon. This is more prominent in the cecum and ascending colon. The liver is of uniform attenuation without mass or defect. There is no intra or extrahepatic biliary ductal dilatation. The spleen is normal. The gallbladder is within normal limits. The pancreas is of normal contour and attenuation characteristics. There is no evidence of adrenal mass. Both kidneys demonstrate prompt and equal nephrograms. The kidneys are normal in size, shape and configuration. There is no evidence of renal or ureteral mass. No renal or ureteral calculi are identified. There is no hydroureter or hydronephrosis. No evidence for appendicitis. There is no bowel wall thickening. No evidence for small or large bowel obstruction. There is no evidence of abdominal ascites or lymphadenopathy. There is no evidence of intrinsic or extrinsic bladder mass. There is no pelvic ascites or lymphadenopathy. Images of the lung bases show no evidence of pleural or parenchymal mass. There are no pleural effusions. The bony structures are free of lytic or blastic lesions. Moderate spondylosis. IMPRESSION: Constipation. No evidence of acute abdominal or pelvic pathology. Electronically signed on Jun 05, 2018 12:25:04 AM EST by: Humberto Deleon M.D., Certified by RIC, HARISH, Neuroradiology 06/05/18 02:15 On re-evaluation, patient feels better and is in no acute distress. I have discussed the results and plan with the patient, who expresses understanding. Patient in agreement with plan to be discharged home. Patient is stable for discharge. Patient was instructed to follow up with physician or return if symptoms worsen or new concerning symptoms arise. - Lab Interpretations I have reviewed the lab results: Yes - RAD Interpretation Data Control Clerk Supervisor: Radiologist - EKG Interpretation Interpreted by ED Physician: Yes Type: 12 lead EKG - Medication Orders Current Medication Orders: Sodium Chloride (Sodium Chloride 0.9%) 1,000 mls @ 100 mls/hr IV .Q10H STA Stop: 06/05/18 07:41 Discontinued Medications Morphine Sulfate (Morphine) 4 mg IVP STAT STA Stop: 06/04/18 21:43 Ondansetron HCl (Zofran Inj) 4 mg IVP STAT STA Stop: 06/04/18 21:43 - Scribe Statement The provider has reviewed the documentation as recorded by the Marc Steward Provider Scribe Attestation: All medical record entries made by the Rosaibtrey were at my direction and personally dictated by me. I have reviewed the chart and agree that the record accurately reflects my personal performance of the history, physical exam, medical decision making, and the department course for this patient. I have also personally directed, reviewed, and agree with the discharge instructions and disposition. Disposition/Present on Arrival - Present on Arrival Any Indicators Present on Arrival: No History of DVT/PE: No History of Uncontrolled Diabetes: No Urinary Catheter: No History of Decub. Ulcer: No History Surgical Site Infection Following: None - Disposition Have Diagnosis and Disposition been Completed?: Yes Diagnosis: Abdominal pain Disposition: HOME/ ROUTINE Disposition Time: 02:15 Condition: GOOD Discharge Instructions (ExitCare): Acute Abdomen (Belly Pain) Additional Instructions: TANMAY SIMS, thank you for letting us take care of you today. Your provider was Rajeev Carbajal MD and you were treated for ABD PAIN. The emergency medical care you received today was directed at your acute symptoms. If you were prescribed any medication, please fill it and take as directed. It may take several days for your symptoms to resolve. Return to the Emergency Department if your symptoms worsen, do not improve, or if you have any other problems. Please contact your doctor or call one of the physicians/clinics you have been referred to that are listed on the Patient Visit Information form that is included in your discharge packet. Bring any paperwork you were given at discharge with you along with any medications you are taking to your follow up visit. Our treatment cannot replace ongoing medical care by a primary care provider outside of the emergency department. Thank you for allowing the [facility] team to be part of your care today. If you had an X-Ray or CT scan: A Radiologist will review the ED reading if any change in treatment is needed we will contact you. If you had a blood, urine, or wound culture: It will take several days for the results, if any change in treatment is needed we will contact you. If you had an STI test: It will take 48 hours for the results. Please call after 1 week if you have not heard back. Prescriptions: Pantoprazole Sodium [Protonix] 40 mg PO DAILY #14 ect Referrals: Nhan Plaza MD [Primary Care Provider] - Follow up with primary Forms: [employer] (Italian)
[2018-06-04 22:18] LABS: BASO # 0.01 K/mm3 (0.0-2.0); BASO % 0.2 % (0.0-3.0); EOS # 0.2 (0.0-0.7); EOS % 3.8 % (1.5-5.0); HEMOGLOBIN 14.3 g/dL (14.0-18.0); LYMPH # 2.5 (1.2-3.4); LYMPH % 47.4 % (22.0-35.0); MEAN CELL VOLUME 86.1 fl (80.0-105.0); MEAN CORPUSCULAR HEMOGLOBIN 28.7 pg (25.0-35.0); MEAN CORPUSCULAR HGB CONC 33.3 g/dl (31.0-37.0); MONO # 0.4 (0.1-0.6); MONO % 7.2 % (1.0-6.0); RBC 4.98 10^6/uL (3.5-6.1); RED CELL DISTRIBUTION WIDTH 12.7 % (11.5-14.5); WHITE BLOOD COUNT 5.3 10^3/uL (4.5-11.0)
[2018-06-04 22:19] LABS: URINE APPEARANCE CLEAR (CLEAR); URINE BILIRUBIN NEGATIVE (NEGATIVE); URINE BLOOD TRACE-INTACT (NEGATIVE); URINE COLOR YELLOW (YELLOW); URINE GLUCOSE (UA) NEGATIVE (NEGATIVE); URINE LEUKOCYTE ESTERASE NEGATIVE Leu/uL (NEGATIVE); URINE PROTEIN NEGATIVE mg/dL (<30 mg/dL); URINE UROBILINOGEN 0.2 E.U./dL (<1 E.U./dL)
[2018-06-04 22:22] LABS: INR 1.06; PARTIAL THROMBOPLASTIN TIME 29.8 Seconds (26.9-38.3); PROTHROMBIN TIME 11.8 SECONDS (9.4-12.5); URINE RBC 0 - 2 /hpf (0-2)
[2018-06-04 22:27] LABS: ALB/GLOB RATIO 1.3 (1.1-1.8); ALBUMIN 4.4 g/dL (3.0-4.8); ALT/SGPT 21 U/L (7-56); AMYLASE 102 U/L (35-125); AST/SGOT 35 U/L (17-59); BLOOD UREA NITROGEN 20 mg/dL (7-21); CALCIUM 8.9 mg/dL (8.4-10.5); GFR NON-AFRICAN AMERICAN > 60; LIPASE 164 U/L (23-300)
[2018-06-04 22:38] LABS: TROPONIN I < 0.01 ng/mL
[2018-06-04] MEDS ORDERED: Iohexol 350 MG/100 ML VIAL ONE (23:01)
[2018-06-05 02:00] VITALS: BP 121/70; PULSE 75; RESP 18; O2SAT 100
--- NOTE | 2018-06-05 10:14 | CT ---
Date of service: 06/04/2018 PROCEDURE: CT Abdomen and Pelvis with contrast HISTORY: abd pain COMPARISON: None. TECHNIQUE: Contrast dose: Radiation dose: Total exam DLP = 834.87 mGy-cm. This CT exam was performed using one or more of the following dose reduction techniques: Automated exposure control, adjustment of the mA and/or kV according to patient size, and/or use of iterative reconstruction technique. FINDINGS: LOWER THORAX: Unremarkable. LIVER: Unremarkable. No gross lesion or ductal dilatation. GALLBLADDER AND BILE DUCTS: Unremarkable. PANCREAS: Unremarkable. No gross lesion or ductal dilatation. SPLEEN: Unremarkable. ADRENALS: Unremarkable. No mass. KIDNEYS AND URETERS: 1 centimeter right lower pole renal cyst. No hydronephrosis. No solid mass. VASCULATURE: Unremarkable. No aortic aneurysm. No aortic atherosclerotic calcification or mural plaque present. BOWEL: Unremarkable. No obstruction. No gross mural thickening. APPENDIX: Normal appendix. PERITONEUM: Unremarkable. No free fluid. No free air. LYMPH NODES: Unremarkable. No enlarged lymph nodes. BLADDER: Unremarkable. REPRODUCTIVE: Unremarkable. BONES: No acute fracture. OTHER FINDINGS: None. IMPRESSION: No acute pathology.
--- NOTE | 2018-06-05 10:36 | CARD ---
APPROVED REPORT Date of service: 06/04/2018 EKG Measurement Heart [id number] <Conclusion> Normal sinus rhythm Normal ECG
== END 2018-06-05 02:19 | disposition home or self-care (01) ==
LOC: ED 21:14
DX: R10.84 Generalized abdominal pain (principal); Z87.891 Personal history of nicotine dependence; Z85.528 Personal history of other malignant neoplasm of kidney
CPT/HCPCS: 74177; 80053; 81001; 82150; 82550; 83615; 83690; 84484; 85025; 85610; 85730; 93005; 96374; 96375; 99283; C9113; J2270; J2405; J7030; Q9967

== ENCOUNTER 2018-06-11 23:12 | Emergency (ER) | payer MEDICARE ==
[2018-06-11 23:12] VITALS: BMI 25.0
[2018-06-11 23:19] VITALS: RESP 18; TEMP 99.2
[2018-06-11] MEDS ORDERED: Oxycodone/Acetaminophen 5/325 mg Tab PO STA (23:30)
[2018-06-11] MEDS ORDERED: Lidocaine 5% Patch TD STA (23:30)
--- NOTE | 2018-06-11 23:37 | ED PDOC ---
Arrival/HPI - General Historian: Patient - History of Present Illness Narrative History of Present Illness (Text): 06/11/18 23:36 63-year-old male presents c/o chronic bilateral knee pain, reports taking tramadol, mobic and zanaflex without improvement prompting ER visit. Patient states that he is currently under the care of an orthopedic doctor regarding the chronic knee pain, andwas advised that he needs b/l knee replacement. Otherwsie denies any trauma, injury, numbness, fever, calf pain/swelling, other joint pain, other complaints. <Richelle Mendenhall PA-C - Last Filed: 06/12/18 00:50> Past Medical History - Past History Past History: No Previous - Infectious Disease Hx of Infectious Diseases: None - Tetanus Immunization Tetanus Immunization: Unknown - Past Medical History Past Medical History: No Previous - Cardiac Hx Pacemaker: No - Pulmonary Hx Respiratory Disorders: No - Neurological Hx Neurological Disorder: No - HEENT Hx HEENT Disorder: No - Renal Other/Comment: left renal mass - Endocrine/Metabolic Hx Endocrine Disorders: No - Hematological/Oncological Hx Blood Transfusions: No Hx Blood Transfusion Reaction: No - Integumentary Hx Dermatological Disorder: No Other/Comment: skin ca - Musculoskeletal/Rheumatological Hx Musculoskeletal Disorders: Yes (BACK PAIN IN HX) - Gastrointestinal Hx Gastrointestinal Disorders: No - Genitourinary/Gynecological Hx Genitourinary Disorders: Yes Hx Prostate Problems: Yes - Psychiatric Hx Emotional Abuse: No Hx Physical Abuse: No Hx Substance Use: No - Past Surgical History Past Surgical History: No Previous - Surgical History Hx Orthopedic Surgery: Yes (right shoulder) - Anesthesia Hx Anesthesia: Yes Hx Anesthesia Reactions: No Hx Malignant Hyperthermia: No - Suicidal Assessment Feels Threatened In Home Enviroment: No <Richelle Mendenhall PA-C - Last Filed: 06/12/18 00:50> Family/Social History Family/Social History: No Known Family HX Smoking Status: Former Smoker Hx Alcohol Use: Yes (former) Hx Substance Use: No Hx Substance Use Treatment: No <Richelle Mendenhall PA-C - Last Filed: 06/12/18 00:50> Allergies/Home Meds <Yash Parisi - Last Filed: 06/12/18 00:40> <Richelle Mendenhall PA-C - Last Filed: 06/12/18 00:50> Allergies/Adverse Reactions: Allergies No Known Allergies Allergy (Verified 06/11/18 23:19) Home Medications: Home Meds Medication Instructions Recorded Confirmed Meloxicam [Mobic] 7.5 mg PO DAILY 06/11/18 06/11/18 tiZANidine [Zanaflex] 4 mg PO DAILY 06/11/18 06/11/18 traMADol [Ultram] 1 tab PO BID PRN 06/11/18 06/11/18 Review of Systems - Review of Systems Constitutional: absent: Fatigue, Fevers Respiratory: absent: SOB, Cough Cardiovascular: absent: Chest Pain, Palpitations Gastrointestinal: absent: Abdominal Pain, Nausea, Vomiting Musculoskeletal: Arthralgias. absent: Back Pain, Neck Pain Skin: absent: Rash, Pruritis, Skin Lesions Neurological: absent: Headache, Dizziness <Richelle Mendenhall PA-C - Last Filed: 06/12/18 00:50> Physical Exam Vital Signs Temp Pulse Resp BP Pulse Ox 06/11/18 23:18 99.2 F 84 18 118/69 98 <Yash Parisi - Last Filed: 06/12/18 00:40> - Physical Exam Narrative Physical Exam (Text): 06/11/18 23:37 GENERAL APPEARANCE: Patient is awake, alert, oriented x 3, in mild painful distress. SKIN: Warm, dry; (-) cyanosis. LOWER EXTREMITY: Mild tenderness of the b/l knees, no effusion. Able to extend actively to 0 degrees; (-) instability on valgus or varus stress. Drawer sign (-). (-) distal neurovascular deficit. 2 point discrimination. Hip, thigh, leg and ankle: (-) tenderness or limitation of motion. Vital Signs Temp Pulse Resp BP Pulse Ox 06/11/18 23:18 99.2 F 84 18 118/69 98 <Richelle Mendenhall PA-C - Last Filed: 06/12/18 00:50> Medical Decision Making - Medication Orders Current Medication Orders: Discontinued Medications Ketorolac Tromethamine (Toradol) 60 mg IM STAT STA Stop: 06/11/18 23:31 Last Admin: 06/11/18 23:47 Dose: 60 mg MAR Pain Assessment Document 06/11/18 23:47 RG (Rec: 06/11/18 23:48 RG [id number]) Pain Reassessment Is this a pain reassessment? Yes Location Left, Right or Bilateral Bilateral Pain Location Body Site Leg Description Description Constant Pain Behavior Moaning IM Administration Charges Document 06/11/18 23:47 RG (Rec: 06/11/18 23:48 RG [id number]) Injection Site MAR Injection Site Right Vastus Lateralis Charges for Administration # of IM Administrations 1 Lidocaine (Lidoderm) 1 ea TD STAT STA Stop: 06/11/18 23:31 Last Admin: 06/11/18 23:48 Dose: 1 ea Oxycodone/Acetaminophen (Percocet 5/325 Mg Tab) 1 tab PO STAT STA Stop: 06/11/18 23:31 Last Admin: 06/11/18 23:47 Dose: 1 tab MAR Pain Assessment Document 06/11/18 23:47 RG (Rec: 06/11/18 23:47 RG [id number]) Pain Reassessment Is this a pain reassessment? Yes Sleep Is patient sleeping during reassessment? No Presence of Pain Presence of Pain Yes Pain Scale Used Protocol: PSCALES Pain Scale Used Numeric Location Left, Right or Bilateral Bilateral Pain Location Body Site Leg Description Description Constant Pain Behavior Moaning <Yash Parisi - Last Filed: 06/12/18 00:40> ED Course and Treatment: 06/11/18 23:37 Patient given percocet PO, toradol IM and lidoderm patch. On re-evaluation, patient reports that the pain is improving. Advised to follow up with orthopedist in 1-2 days without fail. Return to the emergency room at any time for any new or worsening symptoms. Patient states he fully agrees with and understands discharge instructions. States that he agrees with the plan and disposition. Verbalized and repeated discharge instructions and plan. I have given the patient opportunity to ask any additional questions. - Medication Orders Current Medication Orders: Ketorolac Tromethamine (Toradol) 60 mg IM STAT STA Stop: 06/11/18 23:31 Lidocaine (Lidoderm) 1 ea TD STAT STA Stop: 06/11/18 23:31 Oxycodone/Acetaminophen (Percocet 5/325 Mg Tab) 1 tab PO STAT STA Stop: 06/11/18 23:31 <Richelle Mendenhall PA-C - Last Filed: 06/12/18 00:50> - PA / RUBY ENGINEER / Resident Statement CATINA has reviewed & agrees with the documentation as recorded. CATINA has examined the patient and agrees with the treatment plan. <Yash Parisi - Last Filed: 06/12/18 00:40> - PA / RUBY ENGINEER / Resident Statement CATINA has reviewed & agrees with the documentation as recorded. <Richelle Mendenhall PA-C - Last Filed: 06/12/18 00:50> Disposition/Present on Arrival <Yash Parisi - Last Filed: 06/12/18 00:40> - Present on Arrival Any Indicators Present on Arrival: No History of DVT/PE: No History of Uncontrolled Diabetes: No Urinary Catheter: No History of Decub. Ulcer: No History Surgical Site Infection Following: None - Disposition Have Diagnosis and Disposition been Completed?: Yes Disposition Time: 00:30 Patient Plan: Discharge <Richelle Mendenhall PA-C - Last Filed: 06/12/18 00:50> - Disposition Diagnosis: Chronic knee pain Patient Problems: Current Active Problems Problem Status Onset Chronic knee pain Acute Condition: STABLE Discharge Instructions (ExitCare): Chronic Knee Pain (DC) Additional Instructions: Thank you for letting us take care of you today. You were treated for chronic knee pain. The emergency medical care you received today was directed at your acute symptoms. If you were prescribed any medication, please fill it and take as directed. It may take several days for your symptoms to resolve. Return to the Emergency Department if your symptoms worsen, do not improve, or if you have any other problems. Please contact your doctor in 2 days for re-evaluation and follow up. Bring any paperwork you were given at discharge with you along with any medications you are taking to your follow up visit. Our treatment cannot replace ongoing medical care by a primary care provider (PCP) outside of the emergency department. Thank you for allowing the [facility] team to be part of your care today. Referrals: Nhan Plaza MD [Primary Care Provider] - Follow up with primary
[2018-06-12 00:53] VITALS: BP 117/64; PULSE 79; O2SAT 96
== END 2018-06-12 00:26 | disposition home or self-care (01) ==
LOC: ED 23:12
DX: G89.29 Other chronic pain (principal); M25.561 Pain in right knee; M25.562 Pain in left knee; Z87.891 Personal history of nicotine dependence
CPT/HCPCS: 96372; 99284; J1885

== ENCOUNTER 2018-07-25 09:17 | Emergency (ER) | payer MEDICARE ==
[2018-07-25 09:17] VITALS: BMI 25.0
[2018-07-25 09:32] VITALS: RESP 18
[2018-07-25] MEDS ORDERED: oxyCODONE 5 mg Immediate Release Tab PO STA (10:41)
--- NOTE | 2018-07-25 10:44 | ED PDOC ---
Arrival/HPI - General Chief Complaint: Lower Extremity Problem/Injury Historian: Patient - History of Present Illness Narrative History of Present Illness (Text): 07/25/18 10:44 63 year old male, whose past medical history includes htn/bph/chronic lower back pain with sciatica, nkda, presents to the emergency department complaining of chronic bilateral knee pain. Patient has a scheduled appointment to see his PMD in 2 days. He reports he is under the care of an orthopedic doctor regarding his chronic knee pain and was advised for possible bilateral knee replacement. Patient denies any trauma, numbness, fever, calf pain/swelling, back pain, neck pain, or any other complaints. Symptom Onset: Gradual Symptom Course: Unchanged Activities at Onset: Light Context: Home Past Medical History - Provider Review Nursing Documentation Reviewed: Yes - Past History Past History: No Previous - Infectious Disease Hx of Infectious Diseases: None - Tetanus Immunization Tetanus Immunization: Unknown - Past Medical History Past Medical History: No Previous - Cardiac Hx Pacemaker: No - Pulmonary Hx Respiratory Disorders: No - Neurological Hx Neurological Disorder: No - HEENT Hx HEENT Disorder: No - Renal Other/Comment: left renal mass - Endocrine/Metabolic Hx Endocrine Disorders: No - Hematological/Oncological Hx Blood Transfusions: No Hx Blood Transfusion Reaction: No - Integumentary Hx Dermatological Disorder: No Other/Comment: skin ca - Musculoskeletal/Rheumatological Hx Musculoskeletal Disorders: Yes (BACK PAIN IN HX) - Gastrointestinal Hx Gastrointestinal Disorders: No - Genitourinary/Gynecological Hx Genitourinary Disorders: Yes Hx Prostate Problems: Yes - Psychiatric Hx Emotional Abuse: No Hx Physical Abuse: No Hx Substance Use: No - Past Surgical History Past Surgical History: No Previous - Surgical History Hx Orthopedic Surgery: Yes (right shoulder) - Anesthesia Hx Anesthesia: Yes Hx Anesthesia Reactions: No Hx Malignant Hyperthermia: No - Suicidal Assessment Feels Threatened In Home Enviroment: No Family/Social History - Physician Review Nursing Documentation Reviewed: Yes Family/Social History: No Known Family HX Smoking Status: Former Smoker Hx Alcohol Use: Yes (former) Hx Substance Use: No Hx Substance Use Treatment: No Allergies/Home Meds Allergies/Adverse Reactions: Allergies No Known Allergies Allergy (Verified 06/11/18 23:19) Home Medications: Home Meds Medication Instructions Recorded Confirmed Meloxicam [Mobic] 7.5 mg PO DAILY 06/11/18 07/25/18 tiZANidine [Zanaflex] 4 mg PO DAILY 06/11/18 06/11/18 traMADol [Ultram] 1 tab PO BID PRN 06/11/18 06/11/18 Review of Systems - Physician Review All systems were reviewed & negative as marked: Yes - Review of Systems Constitutional: absent: Fevers Cardiovascular: absent: Calf Pain Musculoskeletal: Other (b/l knee pain). absent: Back Pain, Neck Pain Neurological: absent: Other (numbness) Physical Exam Vital Signs Reviewed: Yes Vital Signs Temp Pulse Resp BP Pulse Ox 07/25/18 09:27 97.5 F L 86 18 123/75 99 Temperature: Afebrile Blood Pressure: Normal Pulse: Regular Respiratory Rate: Normal Appearance: Positive for: Well-Appearing, Non-Toxic, Comfortable Pain Distress: None Mental Status: Positive for: Alert and Oriented X 3 - Systems Exam Head: Present: Atraumatic, Normocephalic Pupils: Present: PERRL Extroacular Muscles: Present: EOMI Conjunctiva: Present: Normal Mouth: Present: Moist Mucous Membranes Neck: Present: Normal Range of Motion Respiratory/Chest: Present: Clear to Auscultation, Good Air Exchange. No: Respiratory Distress, Accessory Muscle Use Cardiovascular: Present: Regular Rate and Rhythm, Normal S1, S2. No: Murmurs Abdomen: No: Tenderness, Distention, Peritoneal Signs Back: Present: Normal Inspection Upper Extremity: Present: Normal Inspection. No: Cyanosis, Edema Lower Extremity: Present: Other (Bialteral chronic orthortic knee changes). No: Edema Neurological: Present: GCS=15, Speech Normal Skin: Present: Warm, Dry, Normal Color. No: Rashes Psychiatric: Present: Alert, Oriented x 3, Normal Insight, Normal Concentration Medical Decision Making ED Course and Treatment: 07/25/18 10:44 Impression: 63 year old male presents complaining of chronic bilateral knee pain. Plan: -- Toradol, oxycodone -- Reassess and disposition Prior Visits: Notes and results from previous visits were reviewed. Progress Notes: 07/25/18 11:05 On re-evaluation, patient is in no acute distress. I have discussed the results and plan with the patient, who expresses understanding. Patient in agreement with plan to be discharged home. Patient is stable for discharge. Patient was instructed to follow up with physician or return if symptoms worsen or new concerning symptoms arise. - Medication Orders Current Medication Orders: Ketorolac Tromethamine (Toradol) 60 mg IM STAT STA Stop: 07/25/18 10:42 Oxycodone HCl (Oxycodone Immediate Release Tab) 5 mg PO STAT STA Stop: 07/25/18 10:42 - Scribe Statement The provider has reviewed the documentation as recorded by the Marc Meneses Provider Scribe Attestation: All medical record entries made by the Scribe were at my direction and personally dictated by me. I have reviewed the chart and agree that the record accurately reflects my personal performance of the history, physical exam, medical decision making, and the department course for this patient. I have also personally directed, reviewed, and agree with the discharge instructions and disposition. Disposition/Present on Arrival - Present on Arrival Any Indicators Present on Arrival: No History of DVT/PE: No History of Uncontrolled Diabetes: No Urinary Catheter: No History of Decub. Ulcer: No History Surgical Site Infection Following: None - Disposition Have Diagnosis and Disposition been Completed?: Yes Diagnosis: Chronic knee pain Disposition: HOME/ ROUTINE Disposition Time: 10:35 Condition: GOOD Discharge Instructions (ExitCare): Chronic Knee Pain (DC) Additional Instructions: DWAYNE LUNA, thank you for letting us take care of you today. Your provider was Jovanny Lomeli DO and you were treated for knee problem. The emergency medical care you received today was directed at your acute symptoms. If you were prescribed any medication, please fill it and take as directed. It may take several days for your symptoms to resolve. Return to the Emergency Department if your symptoms worsen, do not improve, or if you have any other problems. Please contact your doctor or call one of the physicians/clinics you have been referred to that are listed on the Patient Visit Information form that is included in your discharge packet. Bring any paperwork you were given at discharge with you along with any medications you are taking to your follow up visit. Our treatment cannot replace ongoing medical care by a primary care provider outside of the emergency department. Thank you for allowing the [facility] team to be part of your care today. Follow up with your primary care doctor in 2 days s as scheduled for re- evaluation and further management. Prescriptions: oxyCODONE [oxyCODONE Immediate Release Tab] 5 mg PO Q6 PRN #15 tab PRN Reason: Pain, Severe (8-10) Forms: [employer] (Dominican)
[2018-07-25 11:11] VITALS: BP 128/73; PULSE 80; TEMP 98; O2SAT 98
== END 2018-07-25 11:10 | disposition home or self-care (01) ==
LOC: ED 09:17
DX: G89.29 Other chronic pain (principal); M25.561 Pain in right knee; M25.562 Pain in left knee; I10 Essential (primary) hypertension; Z87.891 Personal history of nicotine dependence; N40.0 Benign prostatic hyperplasia without lower urinary tract symptoms
CPT/HCPCS: 96372; 99283; J1885

== ENCOUNTER 2018-08-12 10:47 | Outpatient (CLI) | payer MEDICARE | END 2018-08-12 10:48 | disposition home or self-care (01) | LOC: RAD 10:47 | DX: M17.11 Unilateral primary osteoarthritis, right knee (principal) ==

== ENCOUNTER 2018-09-17 13:08 | Emergency (ER) | payer MEDICARE ==
[2018-09-17 13:18] VITALS: BMI 26.6
[2018-09-17] MEDS ORDERED: Lidocaine 5% Patch TD STA (13:43)
--- NOTE | 2018-09-17 13:59 | ED PDOC ---
Arrival/HPI - General Chief Complaint: Back Pain Time Seen by Provider: 09/17/18 13:10 Historian: Patient - History of Present Illness Narrative History of Present Illness (Text): 09/17/18 13:56 Patient c/o low back pain, radiating to b/l legs for 2-3 days. Patient denies fever, urinary symptoms, incontinence or retention of urine or stool. Patient denies any injuries. Patient has h/o left renal cancer, surgery was done on 2017. Patient currently is not on any treatment. Time/Duration: < week Past Medical History - Provider Review Nursing Documentation Reviewed: Yes - Past History Past History: No Previous - Patient History Narrative Patient History: left kidney cancer - Infectious Disease Hx of Infectious Diseases: None - Tetanus Immunization Tetanus Immunization: Unknown - Past Medical History Past Medical History: No Previous - Cardiac Hx Pacemaker: No - Pulmonary Hx Respiratory Disorders: No - Neurological Hx Neurological Disorder: No - HEENT Hx HEENT Disorder: No - Renal Other/Comment: left renal mass - Endocrine/Metabolic Hx Endocrine Disorders: No - Hematological/Oncological Hx Blood Transfusions: No Hx Blood Transfusion Reaction: No - Integumentary Hx Dermatological Disorder: No Other/Comment: skin ca - Musculoskeletal/Rheumatological Hx Musculoskeletal Disorders: Yes (BACK PAIN IN HX) - Gastrointestinal Hx Gastrointestinal Disorders: No - Genitourinary/Gynecological Hx Genitourinary Disorders: Yes Hx Prostate Problems: Yes - Psychiatric Hx Emotional Abuse: No Hx Physical Abuse: No Hx Substance Use: No - Past Surgical History Past Surgical History: No Previous - Surgical History Hx Orthopedic Surgery: Yes (right shoulder) - Anesthesia Hx Anesthesia: Yes Hx Anesthesia Reactions: No Hx Malignant Hyperthermia: No - Suicidal Assessment Feels Threatened In Home Enviroment: No Family/Social History - Physician Review Nursing Documentation Reviewed: Yes Family/Social History: No Known Family HX Smoking Status: Former Smoker Hx Alcohol Use: Yes (former) Hx Substance Use: No Hx Substance Use Treatment: No Allergies/Home Meds Allergies/Adverse Reactions: Allergies No Known Allergies Allergy (Verified 09/17/18 13:18) Home Medications: Home Meds Medication Instructions Recorded Confirmed Meloxicam [Mobic] 7.5 mg PO DAILY 06/11/18 07/25/18 tiZANidine [Zanaflex] 4 mg PO DAILY 06/11/18 06/11/18 traMADol [Ultram] 1 tab PO BID PRN 06/11/18 06/11/18 Review of Systems - Physician Review All systems were reviewed & negative as marked: Yes Physical Exam Vital Signs Reviewed: Yes Vital Signs Temp Pulse Resp BP Pulse Ox 09/17/18 13:18 98.2 F 77 18 136/61 99 Temperature: Afebrile Blood Pressure: Normal Pulse: Regular Respiratory Rate: Normal Appearance: Positive for: Well-Appearing, Non-Toxic, Comfortable Pain Distress: None Mental Status: Positive for: Alert and Oriented X 3 - Systems Exam Head: Present: Atraumatic, Normocephalic Conjunctiva: Present: Normal Respiratory/Chest: Present: Clear to Auscultation, Good Air Exchange. No: Respiratory Distress Cardiovascular: Present: Regular Rate and Rhythm, Normal S1, S2 Abdomen: Present: Normal Bowel Sounds. No: Tenderness, Distention Back: Present: Normal Inspection, Midline Tenderness (LS spine), Paraspinal Tenderness (LS spine). No: Pain with Leg Raise Neurological: Present: GCS=15, Speech Normal, Motor Func Grossly Intact, Normal Sensory Function Skin: Present: Warm, Dry, Normal Color. No: Rashes Psychiatric: Present: Alert, Oriented x 3, Normal Insight, Normal Mood Medical Decision Making ED Course and Treatment: 09/17/18 14:02 Plan: LS spine xray, Toradol IM, Valium po, Lidoderm patch. Re-evaluation Time: 15:46 Reassessment Condition: Improved (feels better, no neuro deficit, ambulatory) - RAD Interpretation Narrative RAD Interpretations (Text): 09/17/18 15:42 Accession No. : [id number] Patient Name / ID : CHERYL RICE / [id number] Exam Date : 09/17/2018 14:55:26 ( Approved ) Study Comment : Sex / Age : M / [id number] Creator : Roddy Hatch MD Dictator : Roddy Hatch MD Plastic Extrusion Operator : Office Helper : Roddy Hatch MD Approver2 : Report Date : 09/17/2018 15:30:31 My Comment : Date of service: 09/17/2018 PROCEDURE: Radiographs of the Lumbar Spine. HISTORY: LB pain, radiating to b/l legs, h/o renal cancer COMPARISON: No prior. TECHNIQUE: Two views obtained. FINDINGS: BONES: Normal alignment. No listhesis. No fracture. DISC SPACES: There is disc space narrowing throughout the lumbar spine. Anterior osteophytes are seen. OTHER FINDINGS: None. IMPRESSION: There is disc space narrowing throughout the lumbar spine. Anterior osteophytes are seen. Radiology Orders: 09/17/18 13:42 LS SPINE AP/LAT [RAD] Stat - Medication Orders Current Medication Orders: Discontinued Medications Diazepam (Valium) 5 mg PO STAT STA Stop: 09/17/18 13:44 Ketorolac Tromethamine (Toradol) 30 mg IM STAT STA Stop: 09/17/18 13:44 Lidocaine (Lidoderm) 1 ea TD STAT STA Stop: 09/17/18 13:44 Disposition/Present on Arrival - Present on Arrival Any Indicators Present on Arrival: No History of DVT/PE: No History of Uncontrolled Diabetes: No Urinary Catheter: No History of Decub. Ulcer: No History Surgical Site Infection Following: None - Disposition Have Diagnosis and Disposition been Completed?: Yes Diagnosis: Low back pain Disposition: HOME/ ROUTINE Disposition Time: 15:47 Condition: IMPROVED Discharge Instructions (ExitCare): Low Back Pain (DC) Print Language: PALAU[place] Additional Instructions: Follow up with your PMD within 1-2 days. Return to ED if feel worse. Prescriptions: Lidocaine 5% [Lidoderm] 1 patch TP DAILY #20 patch diaZEpam [Valium] 2 mg PO TID #15 tab Forms: [employer] ([place])
--- NOTE | 2018-09-17 15:34 | RAD ---
Date of service: 09/17/2018 PROCEDURE: Radiographs of the Lumbar Spine. HISTORY: LB pain, radiating to b/l legs, h/o renal cancer COMPARISON: No prior. TECHNIQUE: Two views obtained. FINDINGS: BONES: Normal alignment. No listhesis. No fracture. DISC SPACES: There is disc space narrowing throughout the lumbar spine. Anterior osteophytes are seen. OTHER FINDINGS: None. IMPRESSION: There is disc space narrowing throughout the lumbar spine. Anterior osteophytes are seen.
[2018-09-17 16:06] VITALS: BP 155/78; PULSE 74; RESP 17; TEMP 98; O2SAT 98
== END 2018-09-17 16:07 | disposition home or self-care (01) ==
LOC: ED 13:08
DX: M54.5 Low back pain (principal); Z87.891 Personal history of nicotine dependence; Z85.528 Personal history of other malignant neoplasm of kidney
CPT/HCPCS: 72100; 96372; 99283; J1885